=== PATIENT | female | born 1965 | race Caucasian/White ===

== ENCOUNTER 2020-05-21 05:58 | Inpatient (IN) | payer BC ==
[~2020-05-21] VITALS: Ht 162.6 cm; Wt 85.0 kg
[2020-05-21] VITALS (13 sets, daily range): BP systolic 111–138; BP diastolic 63–88
[~2020-05-21 05:58] MED LIST: CLON2TAB PO; FERR325T32 PO; PROP80CA PO; ZOLP10TA5 PO
[2020-05-21] MEDS ORDERED: ondansetron/PF 4mg/2ml inj IV ONE ×2 (06:55→11:25)
[2020-05-21] MEDS ORDERED: normal saline 1000ML IV soln IVB ONE (06:55)
[2020-05-21 06:56] LABS: BASOPHILS # (AUTO) 0.1 X10'3 (0-0.2); BASOPHILS % (AUTO) 1.3 % (0-1); EOSINOPHILS # (AUTO) 0.2 X10'3 (0-0.9); EOSINOPHILS % (AUTO) 3.6 % (0-6); HEMATOCRIT 32.2 % (35.0-45.0); HEMOGLOBIN 10.5 g/dl (12.0-16.0); LYMPHOCYTES # (AUTO) 0.7 X10'3 (1.1-4.8); LYMPHOCYTES % (AUTO) 13.7 % (21-51); MEAN CORPUSCULAR HEMOGLOBIN 29.5 PG (27.0-31.0); MEAN CORPUSCULAR HGB CONC 32.7 g/dL (33.0-36.5); MEAN CORPUSCULAR VOLUME 90.2 FL (78-98); MEAN PLATELET VOLUME 7.7 FL (7.4-10.4); MONOCYTES # (AUTO) 0.7 X10'3 (0-0.9); MONOCYTES % (AUTO) 12.3 % (2-12); NEUTROPHILS # (AUTO) 3.8 X10'3 (1.8-7.7); NEUTROPHILS % (AUTO) 69.1 % (42-75); PLATELET COUNT 165 X10'3 (140-440); RED BLOOD COUNT 3.58 X10'6 (4.20-5.60); RED CELL DISTRIBUTION WIDTH 19.8 % (11.5-14.5); WHITE BLOOD COUNT 5.4 X10'3 (4.5-11.0)
[2020-05-21 07:02] LABS: PARTIAL THROMBOPLASTIN TIME 28 SECONDS (22-32)
[2020-05-21 07:06] LABS: ALANINE AMINOTRANSFERASE 162 U/L (12-78); ALBUMIN 3.7 G/DL (3.4-5.0); ALBUMIN/GLOBULIN RATIO 0.8 (1.1-1.5); ALKALINE PHOSPHATASE 182 IU/L (46-116); ANION GAP 17 (8-16); ASPARTATE AMINO TRANSFERASE 334 U/L (10-37); BILIRUBIN,TOTAL 2.8 MG/DL (0.1-1.0); BLOOD UREA NITROGEN 30 MG/DL (7-18); BUN/CREATININE RATIO 44.1 (6.6-38.0); CALCIUM 8.2 MG/DL (8.5-10.1); CHLORIDE 106 MMOL/L (99-107); CREATININE 0.68 MG/DL (0.40-0.90); ETHANOL 0.218 GM/DL (0.0-0.010); GLUCOSE 101 MG/DL (70-104); LIPASE 95 U/L (73-393); SODIUM 144 MMOL/L (135-145); TOTAL CARBON DIOXIDE 21.2 MMOL/L (24-32); TOTAL PROTEIN 8.4 G/DL (6.4-8.2); eGFR 90 ML/MIN
[2020-05-21 07:07] LABS: POTASSIUM 3.8 MMOL/L (3.5-5.1)
[2020-05-21] MEDS ORDERED: pantoprazole 40 MG vial IV ONE (07:50)
[2020-05-21 08:45] LABS: CLARITY,URINE CLOUDY (Clear); COLOR,URINE YELLOW (Yellow); GLUCOSE, URINE NEGATIVE (Neg); KETONES,URINE >=80 mg/dl (Neg); LEUKOCYTE ESTERASE ,URINE NEGATIVE (Neg); NITRITES, URINE POSITIVE (Neg); OCCULT BLOOD,URINE SMALL (Neg); PROTEIN,URINE NEGATIVE (Neg)
[2020-05-21 08:46] LABS: UA COLLECTION TYPE CLN CATCH MIDSTREAM
[2020-05-21 08:51] LABS: BACTERIA,URINE 2+ /HPF (Neg); RBC,URINE 0-2 /HPF (0-2); SQUAMOUS EPITHELIAL CELL,UR FEW /LPF (FEW); WBC,URINE 0-4 /HPF (0-4)
[2020-05-21 08:52] LABS: WBC CLUMPS,URINE FEW /HPF (NEGATIVE)
[2020-05-21 09:45] LABS: ANISOCYTOSIS 2+
[2020-05-21 09:46] LABS: ELLIPTOCYTES FEW
[2020-05-21 09:47] LABS: PLATELET ESTIMATE NORMAL
[2020-05-21 09:49] LABS: HEMOGLOBIN 8.9 g/dl (12.0-16.0); MEAN CORPUSCULAR HEMOGLOBIN 29.6 PG (27.0-31.0); MEAN CORPUSCULAR HGB CONC 32.9 g/dL (33.0-36.5); MEAN CORPUSCULAR VOLUME 90.1 FL (78-98); MEAN PLATELET VOLUME 7.8 FL (7.4-10.4); PLATELET COUNT 98 X10'3 (140-440); RED BLOOD COUNT 2.99 X10'6 (4.20-5.60); WHITE BLOOD COUNT 3.5 X10'3 (4.5-11.0)
[2020-05-21] MEDS ORDERED: octreotide inj. 500 MCG in normal saline 100ml IV soln 97.5 ML IV SCH (10:10)
[2020-05-21] MEDS ORDERED: octreotide 100mcg/1 ml ampule IV ONE (10:10)
[2020-05-21] MEDS: pantoprazole 40MG/NS 100ML BAG 100 ML IV SCH ×3 (11:18→21:03)
[2020-05-21] MEDS ORDERED: CLON-373 PO (12:23)
[2020-05-21] MEDS ORDERED: HYDR50CA5 PO (12:23)
[2020-05-21] MEDS ORDERED: PROP10TA10 PO (12:23)
[2020-05-21] MEDS ORDERED: BACL10TA7 PO (12:23)
--- NOTE | 2020-05-21 13:03 | NUR ---
DR TARIQ AWARE PRBC NOT RUNNING, ANOTHER NURSE ATTEMPTING FOR THIRD IV
--- NOTE | 2020-05-21 13:41 | NUR ---
Note undone in ED - 05/21/20 at 1343 by [email or web address] REPORT CALLED TO [facility] ON ORTHO FLOOR. PT TO BE TRANSFERRED WITH TELE. Addendum: 05/21/20 at 1342 by [email or web address] Amendment undone in [facility] - 05/21/20 at 1343 by [email or web address] REPORT CALLED TO [facility] ON pcu. pT TO BE TRANSPORTED WITH TELE.
--- NOTE | 2020-05-21 13:43 | NUR ---
REPORT CALLED TO [facility] ON PCU. PT GETTING BLOOD, PROTONIX, AND SANOSTATIN GTT'S.
--- NOTE | 2020-05-21 13:45 | NUR ---
Received report from EMANUEL Hernández
--- NOTE | 2020-05-21 14:00 | NUR ---
pt arrived to [facility] via gurney with all belongings
[2020-05-21] MEDS ORDERED: LIDOcaine Viscous 15ml cup ONE (14:24)
[2020-05-21] MEDS ORDERED: MIDAZolam 5mg/5ml vial ONE (14:24)
[2020-05-21] MEDS ORDERED: fentaNYL/PF 50MCG/1 ML 2ML syringe ONE (14:24)
--- NOTE | 2020-05-21 14:40 | NUR ---
Pt transferred to GI lab for EGD. All belongings left in room 0138I
[2020-05-21] MEDS ORDERED: magnesium 2GM in 50ml NS 50 ML IV PRN (15:55)
[2020-05-21] MEDS ORDERED: normal saline 1000ml 1,000 ML IV SCH (15:55)
[2020-05-21] MEDS ORDERED: HYDROcodone/acetaminophen 5mg/325mg tablet PO PRN (15:55)
[2020-05-21] MEDS ORDERED: metoclopramide 5 mg/ml inj IV PRN (15:55)
[2020-05-21] MEDS ORDERED: potassium CL 10mEq/100ml bag 100 ML IV PRN ×2 (15:55)
[2020-05-21] MEDS ORDERED: potassium Cl 20 mEq SR tablet PO PRN ×2 (15:55)
[2020-05-21] MEDS ORDERED: haloperidol 5mg tablet PO PRN (15:55)
[2020-05-21] MEDS ORDERED: magnesium Cl slow-release 64mg tablet PO PRN (15:55)
[2020-05-21] MEDS ORDERED: LORazepam 2 mg/ml vial IV PRN (15:55)
[2020-05-21] MEDS ORDERED: acetaminophen 325mg tablet PO PRN (15:55)
[2020-05-21] MEDS ORDERED: ondansetron/PF 4mg/2ml inj IV PRN (15:55)
[2020-05-21] MEDS ORDERED: morphine 2 MG/ML inj. syringe IV PRN ×2 (15:55)
[2020-05-21] MEDS ORDERED: thiamine 100mg/ml 2ml inj. IV ONE (15:55)
[2020-05-21] MEDS ORDERED: bisacodyl 10mg suppository rectal RC PRN (15:55)
[2020-05-21] MEDS ORDERED: magnesium hydroxide 30ml (MOM) UD suspension PO PRN (15:55)
[2020-05-21] MEDS ORDERED: mag hydrox/Alum hydrox/simeth 30ml oral suspension PO PRN (15:55)
[2020-05-21] MEDS ORDERED: haloperidol lactate 5mg/ml inj IM PRN (15:55)
[2020-05-21] MEDS ORDERED: dextrose 50%-water 50ml dispensing syringe IV PRN (15:55)
[2020-05-21] MEDS ORDERED: diphenhydrAMINE 25mg capsule PO PRN (15:55)
[2020-05-21] MEDS ORDERED: HYDROcodone/acetaminophen 10/325mg tab PO PRN (15:55)
[2020-05-21] MEDS ORDERED: magnesium 4gm in 100ml NS 100 ML IV PRN (15:55)
[2020-05-21] MEDS ORDERED: thiamine inj. 100 MG in normal saline 100ml IV soln 99 ML IV ONE (16:10)
[2020-05-21 16:48] LABS: HEMOGLOBIN A1C 5.2 % (4.5-6.2)
[2020-05-21] MEDS: clonazePAM 1mg tablet PO PRN (17:43)
--- NOTE | 2020-05-21 18:40 | NUR ---
Problems reprioritized. Patient report given, questions answered & plan of care reviewed with EMANUEL Chamberlain.
[2020-05-21] MEDS: K and/or MAG REPLACEMENT MC SCH (20:00)
[2020-05-21] MEDS ORDERED: hydrOXYzine 25 MG tablet PO SCH (21:00)
[2020-05-21] MEDS: propranolol 10mg tablet PO SCH (21:03)
[2020-05-22] MEDS: pantoprazole 40MG/NS 100ML BAG 100 ML IV SCH ×2 (01:54→05:30)
[2020-05-22 02:00] VITALS: BP 113/68
[2020-05-22] MEDS: clonazePAM 1mg tablet PO PRN (05:30)
--- NOTE | 2020-05-22 06:34 | NUR ---
Patient in room PCU 3028. I have received report from EMANUEL Chamberlain and had the opportunity to ask questions and assume patient care.
[2020-05-22 07:00] VITALS: BP 109/68
[2020-05-22] MEDS: propranolol 10mg tablet PO SCH (07:52)
[2020-05-22 07:57] LABS: BASOPHILS % (AUTO) 0.8 % (0-1); EOSINOPHILS # (AUTO) 0.1 X10'3 (0-0.9); HEMOGLOBIN 9.6 g/dl (12.0-16.0); LYMPHOCYTES # (AUTO) 0.6 X10'3 (1.1-4.8); LYMPHOCYTES % (AUTO) 20.3 % (21-51); MEAN CORPUSCULAR HEMOGLOBIN 30.3 PG (27.0-31.0); MEAN CORPUSCULAR HGB CONC 33.2 g/dL (33.0-36.5); MEAN CORPUSCULAR VOLUME 91.2 FL (78-98); MEAN PLATELET VOLUME 7.6 FL (7.4-10.4); MONOCYTES # (AUTO) 0.4 X10'3 (0-0.9); MONOCYTES % (AUTO) 13.8 % (2-12); NEUTROPHILS # (AUTO) 1.8 X10'3 (1.8-7.7); NEUTROPHILS % (AUTO) 61.1 % (42-75); PLATELET COUNT 59 X10'3 (140-440); RED BLOOD COUNT 3.18 X10'6 (4.20-5.60); RED CELL DISTRIBUTION WIDTH 19.5 % (11.5-14.5); WHITE BLOOD COUNT 2.9 X10'3 (4.5-11.0)
[2020-05-22] MEDS ORDERED: multivitamins, therapeutics tablet PO SCH (08:00)
[2020-05-22] MEDS ORDERED: pantoprazole 40mg Tablet.DR PO SCH (08:00)
[2020-05-22] MEDS ORDERED: folic acid 1mg tablet PO SCH (08:00)
[2020-05-22] MEDS: K and/or MAG REPLACEMENT MC SCH (08:00)
[2020-05-22] MEDS ORDERED: thiamine 100mg tablet PO SCH (08:00)
[2020-05-22 08:21] LABS: ALANINE AMINOTRANSFERASE 114 U/L (12-78); ALBUMIN 3.2 G/DL (3.4-5.0); ALBUMIN/GLOBULIN RATIO 0.9 (1.1-1.5); ALKALINE PHOSPHATASE 138 IU/L (46-116); AMYLASE 49 U/L (25-115); ANION GAP 9 (8-16); ASPARTATE AMINO TRANSFERASE 184 U/L (10-37); BLOOD UREA NITROGEN 19 MG/DL (7-18); CALCIUM 7.5 MG/DL (8.5-10.1); CHLORIDE 107 MMOL/L (99-107); CHOL/HDL RATIO 2.2 (0.00-4.99); CHOLESTEROL 159 MG/DL (0-200); CREATININE 0.76 MG/DL (0.40-0.90); GLUCOSE 105 MG/DL (70-104); HDL CHOLESTEROL 73 MG/DL (35-60); LDL CHOLESTEROL 71 MG/DL (50-100); MAGNESIUM 1.3 MG/DL (1.5-2.4); PHOSPHORUS 2.3 MG/DL (2.3-4.5); POTASSIUM 3.5 MMOL/L (3.5-5.1); SODIUM 142 MMOL/L (135-145); TOTAL CARBON DIOXIDE 25.6 MMOL/L (24-32); TOTAL PROTEIN 6.9 G/DL (6.4-8.2); TRIGLYCERIDES 137 MG/DL (20-135); eGFR 79 ML/MIN
[2020-05-22 08:44] LABS: PLATELET ESTIMATE DECREASED; TOTAL CELLS COUNTED 100
[2020-05-22 08:45] LABS: ANISOCYTOSIS 2+; HYPOCHROMASIA 1+; POLYCHROMASIA 1+
[2020-05-22] MEDS ORDERED: CefTRIAXone/D5W-Rocephin 1gm 50 ML IV SCH (09:25)
[2020-05-22] MEDS ORDERED: CEFD300C3 PO (10:10)
[2020-05-22] MEDS ORDERED: FOLI0.4T2 PO (10:10)
[2020-05-22] MEDS ORDERED: MULT-25 PO (10:10)
[2020-05-22] MEDS ORDERED: PANT40TA54 PO (10:10)
[2020-05-22] MEDS ORDERED: THIA50TA10 PO (10:10)
--- NOTE | 2020-05-22 12:29 | NUR ---
Patient stable for discharge per MD orders. Instructions were given, all questions answered appropriately. All belongings collected and sent with patient. PIV's discontinued, cannula's intact. Tele discontinued, telesales agent notified. I got Propanolol from pharmacy and given to patient. New RX's e-script to [facility]. Informed pt to follow up with Dr Lane and PCP within 2 to 3 days. Informed pt the importance not to drink alcohol. Wheeled to lobby and accompanied by son who picked pt up in personal vehicle.
[2020-05-23] MEDS ORDERED: LORazepam 1 MG tablet PO PRN (15:55)
[2020-05-23] MEDS ORDERED: LORazepam 2 mg/ml vial IV PRN (15:55)
[2020-05-25] MEDS ORDERED: LORazepam 1 MG tablet PO PRN (15:55)
[2020-05-25] MEDS ORDERED: LORazepam 2 mg/ml vial IV PRN (15:55)
== END 2020-05-22 12:27 | disposition home or self-care (01) | DRG 378 ==
LOC: ER 05:59 → UNDOADMIN 11:46 → ED HOLD 11:46 → PCU 3S 14:35 → ED HOLD 15:53 → PCU 3S 15:53
PROVIDERS: ADMIT Family Medicine; ATTEND Family Medicine
PROC: 0DB68ZX Excision of Stomach, Via Natural or Artificial Opening Endoscopic, Diagnostic (ICD-10-PCS; principal; 2020-05-21)
PROC: 30233N1 Transfusion of Nonautologous Red Blood Cells into Peripheral Vein, Percutaneous Approach (ICD-10-PCS; 2020-05-21)
DX: K29.61 Other gastritis with bleeding (principal); D62 Acute posthemorrhagic anemia; N39.0 Urinary tract infection, site not specified; K76.6 Portal hypertension; E66.9 Obesity, unspecified; F10.20 Alcohol dependence, uncomplicated; I10 Essential (primary) hypertension; J45.909 Unspecified asthma, uncomplicated; K74.60 Unspecified cirrhosis of liver; K70.10 Alcoholic hepatitis without ascites; B19.20 Unspecified viral hepatitis C without hepatic coma; F41.9 Anxiety disorder, unspecified; R00.0 Tachycardia, unspecified; Z68.32 Body mass index [BMI] 32.0-32.9, adult
CPT/HCPCS: 36415; 36430; 43239; 76700; 80053; 80061; 80320; 81001; 82150; 83036; 83690; 83735; 84100; 85007; 85008; 85025; 85027; 85610; 85730; 86885; 86900; 86901; 86920; 87077; 87081; 87088; 87186; 96374; 97161; 97530; 99152; 99285; A4620; C9113; G0378; J2060; J2250; J2354; J2405; J3010; J3411; J7030; J7040; P9016; Q0177

== ENCOUNTER 2022-10-29 06:12 | Inpatient (IN) | payer BC ==
[~2022-10-29] VITALS: Ht 160 cm; Wt 86.3 kg
[~2022-10-29 06:12] MED LIST changes: +BACL10TA7 PO; +CLON-373 PO; -CLON2TAB PO; -FERR325T32 PO; +HYDR50CA5 PO; +MULT-25 PO; +PANT40TA54 PO; +PROP10TA10 PO; -PROP80CA PO; +THIA50TA10 PO; -ZOLP10TA5 PO
[2022-10-29] MEDS ORDERED: LORazepam 2 mg/ml vial IV ONE (07:00)
[2022-10-29] MEDS ORDERED: normal saline 1000ml 1,000 ML IV ONE (07:00)
--- NOTE | 2022-10-29 07:17 | NUR ---
Per patient, she is on menopause already so she is not menstruating anymore.
[2022-10-29 07:33] LABS: EOSINOPHILS % (AUTO) 0.6 % (0-6); HEMATOCRIT 31.3 % (35.0-45.0); HEMOGLOBIN 10.5 g/dl (12.0-16.0); LYMPHOCYTES # (AUTO) 0.5 X10'3 (1.1-4.8); LYMPHOCYTES % (AUTO) 13.6 % (21-51); MEAN CORPUSCULAR HEMOGLOBIN 32.1 PG (27.0-31.0); MEAN CORPUSCULAR HGB CONC 33.6 g/dL (33.0-36.5); MEAN CORPUSCULAR VOLUME 95.5 FL (78-98); MEAN PLATELET VOLUME 8.2 FL (7.4-10.4); MONOCYTES # (AUTO) 0.7 X10'3 (0-0.9); MONOCYTES % (AUTO) 17.2 % (2-12); NEUTROPHILS # (AUTO) 2.7 X10'3 (1.8-7.7); NEUTROPHILS % (AUTO) 67.6 % (42-75); PLATELET COUNT 77 X10'3 (140-440); RED BLOOD COUNT 3.28 X10'6 (4.20-5.60); RED CELL DISTRIBUTION WIDTH 15.5 % (11.5-14.5)
[2022-10-29 07:38] LABS: ALANINE AMINOTRANSFERASE 36 U/L (12-78); ALBUMIN 2.7 G/DL (3.4-5.0); ALKALINE PHOSPHATASE 169 IU/L (46-116); ANION GAP 18 (8-16); ASPARTATE AMINO TRANSFERASE 135 U/L (10-37); BILIRUBIN,TOTAL 4.7 MG/DL (0.1-1.0); CALCIUM 7.2 MG/DL (8.5-10.1); CHLORIDE 101 MMOL/L (99-107); CREATININE 0.76 MG/DL (0.40-0.90); GLUCOSE 86 MG/DL (70-104); LIPASE 76 U/L (73-393); MAGNESIUM 1.2 MG/DL (1.5-2.4); SODIUM 143 MMOL/L (135-145); TOTAL CARBON DIOXIDE 23.6 MMOL/L (24-32); eGFR 78 ML/MIN
[2022-10-29 07:44] LABS: ALBUMIN/GLOBULIN RATIO 0.7 (1.1-1.5); BLOOD UREA NITROGEN 0 MG/DL (7-18); TOTAL PROTEIN 6.5 G/DL (6.4-8.2)
[2022-10-29 07:46] LABS: POTASSIUM 2.1 MMOL/L (3.5-5.1)
[2022-10-29 07:52] LABS: PLATELET ESTIMATE NORMAL
--- NOTE | 2022-10-29 07:52 | NUR ---
Critical lab K 2.1, BUN 0, and Mg 1.[address] Day
[2022-10-29 07:54] LABS: HYPOCHROMASIA 1+; SCHISTOCYTES FEW
[2022-10-29] MEDS ORDERED: magnesium 4gm in 100ml NS 100 ML IV PRN ×2 (07:55→10:20)
[2022-10-29] MEDS ORDERED: potassium Cl 40MEQ/1/2NS 520ml 520 ML IV PRN ×2 (07:55→10:20)
[2022-10-29] MEDS ORDERED: potassium Cl 20 mEq SR tablet PO PRN ×3 (07:55→10:20)
[2022-10-29] MEDS ORDERED: magnesium 2GM in 50ml NS 50 ML IV PRN (07:55)
[2022-10-29 08:03] LABS: CLARITY,URINE CLOUDY (Clear); COLOR,URINE YELLOW (Yellow); GLUCOSE, URINE NEGATIVE (Neg); KETONES,URINE 15 mg/dl (Neg); LEUKOCYTE ESTERASE ,URINE MODERATE (Neg); NITRITES, URINE POSITIVE (Neg); OCCULT BLOOD,URINE NEGATIVE (Neg); PH,URINE 6.5 (4.8-8.0); PROTEIN,URINE NEGATIVE (Neg)
[2022-10-29 08:04] LABS: UA COLLECTION TYPE CLN CATCH MIDSTREAM
[2022-10-29 08:10] LABS: SQUAMOUS EPITHELIAL CELL,UR MANY /LPF (FEW)
[2022-10-29 08:12] LABS: TRANSITIONAL EPI CELLS,URINE FEW /HPF; WBC,URINE 30-50 /HPF (0-4)
[2022-10-29 08:13] LABS: BACTERIA,URINE 4+ /HPF (Neg); RBC,URINE NONE SEEN /HPF (0-2); URINE HCG NEGATIVE (NEG)
[2022-10-29] MEDS: potassium Cl 20 mEq SR tablet PO PRN ×3 (08:34→20:16)
[2022-10-29 08:38] LABS: PHOSPHORUS 2.4 MG/DL (2.3-4.5)
[2022-10-29] MEDS ORDERED: CefTRIAXone 2gm/D5W 50ml BAG 50 ML IV ONE (08:40)
[2022-10-29] MEDS: K and/or MAG REPLACEMENT MC SCH ×3 (08:42→20:00)
[2022-10-29] MEDS: magnesium Cl slow-release 64mg tablet PO PRN ×2 (08:59→20:15)
[2022-10-29] MEDS ORDERED: LIDOcaine 1% W/epiNEPHrine 1:100,000 20ml vial IJ ONE (09:30)
--- NOTE | 2022-10-29 10:07 | NUR ---
pt consented for paracentesis and supplies at bedside for
[2022-10-29] MEDS ORDERED: magnesium hydroxide 30ml (MOM) UD suspension PO PRN (10:20)
[2022-10-29] MEDS ORDERED: haloperidol lactate 5mg/ml inj IM PRN (10:20)
[2022-10-29] MEDS ORDERED: mag hydrox/Alum hydrox/simeth 30ml oral suspension PO PRN (10:20)
[2022-10-29] MEDS ORDERED: acetaminophen 325mg tablet PO PRN (10:20)
[2022-10-29] MEDS ORDERED: haloperidol 5mg tablet PO PRN (10:20)
[2022-10-29] MEDS ORDERED: ondansetron/PF 4mg/2ml inj IV PRN (10:20)
--- NOTE | 2022-10-29 10:26 | NUR ---
Paracentesis at bedside ongoing. Procedure peformed by Dr. Day
[2022-10-29] MEDS ORDERED: albumin (human) 25% 100 ML IV solution IV ONE (10:40)
--- NOTE | 2022-10-29 10:58 | NUR ---
Paracentesis completed. Dr. Day took out 5 liters of fluid from patient abdomen. Albumin IV infusing
[2022-10-29] MEDS: LORazepam 2 mg/ml vial IV PRN ×3 (11:10→23:32)
[2022-10-29] MEDS ORDERED: MULT-1085 PO (14:17)
[2022-10-29 15:00] VITALS: BP 96/60
[2022-10-29 18:00] VITALS: BP 117/71
[2022-10-29] MEDS: docusate sod 100mg capsule PO SCH (20:15)
[2022-10-29] MEDS: thiamine 100mg tablet PO SCH (20:16)
[2022-10-29 22:00] VITALS: BP 114/78
--- NOTE | 2022-10-29 23:36 | NUR ---
Page Sent PAGER ID: [phone] MESSAGE: [id number] Bailee Sneed: Critical K+ lvl of 2.7. Brit ext [phone]
--- NOTE | 2022-10-29 23:38 | NUR ---
Dr. Navarro adv to replace critical K+ of 2.74 per protocol
[2022-10-30] MEDS: potassium Cl 20 mEq SR tablet PO PRN ×3 (00:10→08:39)
[2022-10-30 02:00] VITALS: BP 119/75
[2022-10-30] MEDS: LORazepam 2 mg/ml vial IV PRN ×2 (05:28→13:09)
--- NOTE | 2022-10-30 06:00 | NUR ---
This nurse agrees with the TIP LENGTH CHECKER's physical assessment. Medications reviewed and monitored by this RN.
[2022-10-30 07:00] VITALS: BP 110/72
[2022-10-30 07:05] LABS: BASOPHILS % (AUTO) 0.8 % (0-1); EOSINOPHILS # (AUTO) 0.1 X10'3 (0-0.9); EOSINOPHILS % (AUTO) 3.9 % (0-6); HEMATOCRIT 29.9 % (35.0-45.0); HEMOGLOBIN 10.1 g/dl (12.0-16.0); LYMPHOCYTES # (AUTO) 0.4 X10'3 (1.1-4.8); LYMPHOCYTES % (AUTO) 16.9 % (21-51); MEAN CORPUSCULAR HEMOGLOBIN 32.6 PG (27.0-31.0); MEAN CORPUSCULAR HGB CONC 33.6 g/dL (33.0-36.5); MEAN PLATELET VOLUME 7.9 FL (7.4-10.4); MONOCYTES # (AUTO) 0.4 X10'3 (0-0.9); MONOCYTES % (AUTO) 14.7 % (2-12); NEUTROPHILS # (AUTO) 1.6 X10'3 (1.8-7.7); NEUTROPHILS % (AUTO) 63.7 % (42-75); RED BLOOD COUNT 3.08 X10'6 (4.20-5.60); RED CELL DISTRIBUTION WIDTH 15.7 % (11.5-14.5); WHITE BLOOD COUNT 2.5 X10'3 (4.5-11.0)
[2022-10-30 07:15] LABS: ALANINE AMINOTRANSFERASE 30 U/L (12-78); ALBUMIN 2.7 G/DL (3.4-5.0); ALKALINE PHOSPHATASE 145 IU/L (46-116); ANION GAP 15 (8-16); ASPARTATE AMINO TRANSFERASE 98 U/L (10-37); BILIRUBIN,TOTAL 5.2 MG/DL (0.1-1.0); BLOOD UREA NITROGEN 1 MG/DL (7-18); BUN/CREATININE RATIO 1.6 (10.0-20.0); CHLORIDE 103 MMOL/L (99-107); CREATININE 0.63 MG/DL (0.40-0.90); GLUCOSE 65 MG/DL (70-104); LIPASE 64 U/L (73-393); MAGNESIUM 1.2 MG/DL (1.5-2.4); POTASSIUM 3.1 MMOL/L (3.5-5.1); SODIUM 142 MMOL/L (135-145); eGFR > 90 ML/MIN
[2022-10-30 07:17] LABS: PLATELET COUNT 30 X10'3 (140-440)
--- NOTE | 2022-10-30 07:25 | NUR ---
Page sent to at approx 0732 - Pt 1714B, Yvrose Sneed, critical lab @ 719. Please advise. Laura Quintero @[phone].
[2022-10-30 07:48] LABS: ALBUMIN/GLOBULIN RATIO 0.8 (1.1-1.5); PHOSPHORUS 2.2 MG/DL (2.3-4.5)
[2022-10-30 07:52] LABS: TOTAL CELLS COUNTED 100
[2022-10-30 07:53] LABS: PLATELET ESTIMATE DECREASED
[2022-10-30] MEDS: K and/or MAG REPLACEMENT MC SCH ×3 (08:00→20:00)
[2022-10-30] MEDS: multivitamins, therapeutics tablet PO SCH ×2 (08:00→08:38)
[2022-10-30] MEDS ORDERED: potassium phosphate inj 15 MMOL in normal saline 250ml IV soln 250 ML IV ONE (08:25)
[2022-10-30] MEDS: thiamine 100mg tablet PO SCH ×2 (08:37→19:30)
[2022-10-30] MEDS: docusate sod 100mg capsule PO SCH ×2 (08:38→19:30)
[2022-10-30] MEDS: CefTRIAXone/D5W-Rocephin 1gm 50 ML IV SCH (08:54)
[2022-10-30 11:00] VITALS: BP 114/70
--- NOTE | 2022-10-30 11:06 | NUR ---
MD gave order to start IV Potassium/phos, d/c'd magnesium ER, and new order Tramadol. Orders updated and started.
[2022-10-30] MEDS: traMADol 50MG tablet PO PRN ×3 (11:33→23:22)
--- NOTE | 2022-10-30 14:35 | NUR ---
AGREE WITH BURRER MARKER AXLE AM ASSESSMENT EXCEPT WHERE ADDITIONS/CHANGES MADE.
--- NOTE | 2022-10-30 14:44 | NUR ---
Page sent to at approx [phone] - Pt 1565B, Yvrose Sneed, tele monitoring order has would you like this renewed until d/c? Laura C @5626.
[2022-10-30 15:00] VITALS: BP 123/79
[2022-10-30 18:00] VITALS: BP 128/83
[2022-10-31] MEDS: LORazepam 2 mg/ml vial IV PRN (01:26)
[2022-10-31 01:55] VITALS: BP 152/65
--- NOTE | 2022-10-31 02:32 | NUR ---
I AGREE WITH LORETA GOSS, PHYSICAL ASSESSMENTS ACCURATE. LIZY RANDALL RN
[2022-10-31 03:52] LABS: BASOPHILS % (AUTO) 0.8 % (0-1); EOSINOPHILS # (AUTO) 0.2 X10'3 (0-0.9); EOSINOPHILS % (AUTO) 5.3 % (0-6); HEMATOCRIT 29.3 % (35.0-45.0); HEMOGLOBIN 9.8 g/dl (12.0-16.0); LYMPHOCYTES # (AUTO) 0.4 X10'3 (1.1-4.8); LYMPHOCYTES % (AUTO) 10.8 % (21-51); MEAN CORPUSCULAR HEMOGLOBIN 32.5 PG (27.0-31.0); MEAN CORPUSCULAR HGB CONC 33.5 g/dL (33.0-36.5); MEAN CORPUSCULAR VOLUME 96.9 FL (78-98); MEAN PLATELET VOLUME 9.2 FL (7.4-10.4); MONOCYTES # (AUTO) 0.5 X10'3 (0-0.9); MONOCYTES % (AUTO) 14.1 % (2-12); NEUTROPHILS # (AUTO) 2.7 X10'3 (1.8-7.7); RED BLOOD COUNT 3.02 X10'6 (4.20-5.60); RED CELL DISTRIBUTION WIDTH 15.9 % (11.5-14.5); WHITE BLOOD COUNT 3.8 X10'3 (4.5-11.0)
[2022-10-31 03:59] LABS: PLATELET COUNT 33 X10'3 (140-440)
[2022-10-31 04:32] LABS: ALANINE AMINOTRANSFERASE 31 U/L (12-78); ALBUMIN 2.7 G/DL (3.4-5.0); ALKALINE PHOSPHATASE 142 IU/L (46-116); ANION GAP 11 (8-16); ASPARTATE AMINO TRANSFERASE 73 U/L (10-37); BILIRUBIN,TOTAL 5.5 MG/DL (0.1-1.0); BLOOD UREA NITROGEN 3 MG/DL (7-18); BUN/CREATININE RATIO 4.1 (10.0-20.0); CALCIUM 6.6 MG/DL (8.5-10.1); CHLORIDE 101 MMOL/L (99-107); CREATININE 0.74 MG/DL (0.40-0.90); GLUCOSE 86 MG/DL (70-104); LIPASE 57 U/L (73-393); MAGNESIUM 1.1 MG/DL (1.5-2.4); POTASSIUM 3.2 MMOL/L (3.5-5.1); SODIUM 138 MMOL/L (135-145); TOTAL CARBON DIOXIDE 26.4 MMOL/L (24-32); eGFR 81 ML/MIN
[2022-10-31 04:33] LABS: ALBUMIN/GLOBULIN RATIO 0.8 (1.1-1.5)
[2022-10-31 07:00] VITALS: BP 122/81
[2022-10-31] MEDS ORDERED: sodium phosphate inj. 30 MMOL in dextrose 5%-water 250 ML IV ONE (07:50)
[2022-10-31] MEDS: CefTRIAXone/D5W-Rocephin 1gm 50 ML IV SCH (07:52)
[2022-10-31] MEDS: K and/or MAG REPLACEMENT MC SCH ×2 (08:00)
[2022-10-31] MEDS: multivitamins, therapeutics tablet PO SCH ×2 (08:00→09:30)
[2022-10-31] MEDS: thiamine 100mg tablet PO SCH (09:30)
[2022-10-31] MEDS: docusate sod 100mg capsule PO SCH (09:30)
[2022-10-31] MEDS: traMADol 50MG tablet PO PRN (09:53)
[2022-10-31] MEDS ORDERED: LORazepam 2 mg/ml vial IV PRN (10:20)
[2022-10-31] MEDS ORDERED: LORazepam 1 MG tablet PO PRN (10:20)
--- NOTE | 2022-10-31 10:33 | NUR ---
Pt 3028B, what labs would you like drawn after IV infusions completed this am? Laura C @3624.
[2022-10-31 11:00] VITALS: BP 120/81
[2022-10-31] MEDS ORDERED: POTA-197 PO (11:03)
[2022-10-31] MEDS ORDERED: MAGN200T5 PO (11:03)
--- NOTE | 2022-10-31 13:43 | NUR ---
AGREE WITH DISTRIBUTED ENERGY SYSTEMS CONSULTANT AM ASSESSMENT.
--- NOTE | 2022-10-31 15:30 | NUR ---
Page sent to at approx [phone] -[id number] requesting work note, cannot return to work without dr mcdonnell for being off work. Also requesting anti anxiety pill to be called into pharmacy upon discharge. thanks, Laura Nino @1125.
[2022-10-31] MEDS ORDERED: CLON2TAB44 PO (16:29)
[2022-10-31 17:49] LABS: MAGNESIUM 1.8 MG/DL (1.5-2.4)
--- NOTE | 2022-10-31 18:00 | NUR ---
Page sent to at approx 1800 - Labs @ 7341 - K+ 3.0, mg 1.8, phos 4.0. Please advise re: janene Nino @[phone].
[2022-11-02] MEDS ORDERED: LORazepam 1 MG tablet PO PRN (10:20)
[2022-11-02] MEDS ORDERED: LORazepam 2 mg/ml vial IV PRN (10:20)
[2022-11-03] MEDS ORDERED: folic acid 1mg tablet PO SCH (08:00)
== END 2022-10-31 19:10 | disposition home or self-care (01) | DRG 433 ==
LOC: ER 06:13 → ED HOLD 10:24 → EDBEDREQ 12:21 → PCU 3S 13:05
PROVIDERS: ADMIT Family Medicine; ATTEND Family Medicine
PROC: 0W9G3ZZ Drainage of Peritoneal Cavity, Percutaneous Approach (ICD-10-PCS; principal; 2022-10-29)
DX: K70.31 Alcoholic cirrhosis of liver with ascites (principal); D61.818 Other pancytopenia; D68.9 Coagulation defect, unspecified; E83.42 Hypomagnesemia; E87.6 Hypokalemia; E83.39 Other disorders of phosphorus metabolism; F41.9 Anxiety disorder, unspecified; F10.10 Alcohol abuse, uncomplicated; G47.9 Sleep disorder, unspecified; B19.20 Unspecified viral hepatitis C without hepatic coma; J45.909 Unspecified asthma, uncomplicated; K70.40 Alcoholic hepatic failure without coma; Z80.1 Family history of malignant neoplasm of trachea, bronchus and lung; Z82.5 Family history of asthma and other chronic lower respiratory diseases; Z83.3 Family history of diabetes mellitus; Z87.11 Personal history of peptic ulcer disease; Z79.899 Other long term (current) drug therapy; Z71.41 Alcohol abuse counseling and surveillance of alcoholic
CPT/HCPCS: 36415; 80053; 81001; 81025; 82140; 83690; 83735; 84100; 84132; 85007; 85008; 85025; 85610; 87081; 96361; 96374; 97116; 97161; 97530; 99285; G0378; J0696; J2060; J2405; J3475; J3480; J3490; J7030; J7040; J7050; J7060; P9047

== ENCOUNTER 2022-12-04 22:31 | Emergency (ER) | payer BC ==
[~2022-12-04] VITALS: Ht 160 cm; Wt 81.8 kg
[~2022-12-04 22:31] MED LIST changes: -BACL10TA7 PO; -CLON-373 PO; +CLON2TAB44 PO; -HYDR50CA5 PO; +MAGN200T5 PO; +MULT-1085 PO; -MULT-25 PO; -PANT40TA54 PO; +POTA-197 PO; -PROP10TA10 PO; -THIA50TA10 PO
[2022-12-05 01:39] LABS: BASOPHILS % (AUTO) 0.3 % (0-1); EOSINOPHILS # (AUTO) 0.1 X10'3 (0-0.9); HEMATOCRIT 26.6 % (35.0-45.0); HEMOGLOBIN 8.5 g/dl (12.0-16.0); LYMPHOCYTES # (AUTO) 0.9 X10'3 (1.1-4.8); LYMPHOCYTES % (AUTO) 7.3 % (21-51); MEAN CORPUSCULAR HEMOGLOBIN 29.7 PG (27.0-31.0); MEAN CORPUSCULAR HGB CONC 31.9 g/dL (33.0-36.5); MEAN CORPUSCULAR VOLUME 93.1 FL (78-98); MONOCYTES # (AUTO) 1.6 X10'3 (0-0.9); MONOCYTES % (AUTO) 13.5 % (2-12); NEUTROPHILS # (AUTO) 9.2 X10'3 (1.8-7.7); NEUTROPHILS % (AUTO) 77.9 % (42-75); PLATELET COUNT 298 X10'3 (140-440); RED BLOOD COUNT 2.86 X10'6 (4.20-5.60); RED CELL DISTRIBUTION WIDTH 16.6 % (11.5-14.5); WHITE BLOOD COUNT 11.8 X10'3 (4.5-11.0)
[2022-12-05 01:41] LABS: ALANINE AMINOTRANSFERASE 19 U/L (12-78); ALBUMIN 2.4 G/DL (3.4-5.0); ALBUMIN/GLOBULIN RATIO 0.6 (1.1-1.5); ALKALINE PHOSPHATASE 193 IU/L (46-116); ANION GAP 12 (8-16); ASPARTATE AMINO TRANSFERASE 39 U/L (10-37); BILIRUBIN,TOTAL 2.7 MG/DL (0.1-1.0); BLOOD UREA NITROGEN 20 MG/DL (7-18); BUN/CREATININE RATIO 16.3 (10.0-20.0); CALCIUM 8.2 MG/DL (8.5-10.1); CHLORIDE 98 MMOL/L (99-107); CREATININE 1.23 MG/DL (0.40-0.90); GLUCOSE 94 MG/DL (70-104); POTASSIUM 4.4 MMOL/L (3.5-5.1); SODIUM 132 MMOL/L (135-145); TOTAL CARBON DIOXIDE 22.4 MMOL/L (24-32); TOTAL PROTEIN 6.3 G/DL (6.4-8.2); eGFR 45 ML/MIN
[2022-12-05] MEDS ORDERED: LORazepam 2 mg/ml vial IV ONE (01:45)
[2022-12-05] MEDS ORDERED: albumin (human) 25% 100 ML IV solution IV ONE ×2 (02:55→04:35)
[2022-12-05 04:38] LABS: BFAPPEAR CLEAR
[2022-12-05 04:43] LABS: BFCOLOR YELLOW
[2022-12-05 04:44] LABS: BFVOLUME 20 ML
[2022-12-05 04:46] LABS: BF RBC COUNT 23 /CU MM; BF WBC COUNT 44 /CU MM (0-1000); LYMPHOCYTES,BODY FLUID 76 %; MONOCYTES,BODY FLUID 17 %; NEUTROPHILS,BODY FLUID 7 %
--- NOTE | 2022-12-05 05:00 | NUR ---
AWARE OF BP. NEW ORDERS FOR ALBUMIN RECIEVED.
[2022-12-05 06:38] VITALS: BP 97/56
== END 2022-12-05 07:10 | disposition home or self-care (01) ==
LOC: ER 22:31
DX: K70.30 Alcoholic cirrhosis of liver without ascites (principal); R18.8 Other ascites; J45.909 Unspecified asthma, uncomplicated; Z79.899 Other long term (current) drug therapy
CPT/HCPCS: 36415; 49083; 80053; 85025; 85610; 89051; 96374; 96375; 96376; 99285; J2060; P9047

== ENCOUNTER 2022-12-09 11:50 | Inpatient (IN) | payer BC ==
[~2022-12-09] VITALS: Ht 160 cm; Wt 73.2 kg
[2022-12-09] MEDS ORDERED: pantoprazole 40mg Tablet.DR PO ONE (15:30)
[2022-12-09 15:55] LABS: BASOPHILS # (AUTO) 0.1 X10'3 (0-0.2); BASOPHILS % (AUTO) 0.7 % (0-1); EOSINOPHILS # (AUTO) 0.1 X10'3 (0-0.9); EOSINOPHILS % (AUTO) 1.2 % (0-6); LYMPHOCYTES # (AUTO) 1.1 X10'3 (1.1-4.8); LYMPHOCYTES % (AUTO) 8.3 % (21-51); MEAN CORPUSCULAR HEMOGLOBIN 29.3 PG (27.0-31.0); MEAN CORPUSCULAR HGB CONC 31.6 g/dL (33.0-36.5); MEAN CORPUSCULAR VOLUME 92.6 FL (78-98); MEAN PLATELET VOLUME 8.3 FL (7.4-10.4); MONOCYTES # (AUTO) 1.6 X10'3 (0-0.9); MONOCYTES % (AUTO) 12.7 % (2-12); NEUTROPHILS # (AUTO) 9.7 X10'3 (1.8-7.7); NEUTROPHILS % (AUTO) 77.1 % (42-75); PLATELET COUNT 281 X10'3 (140-440); RED BLOOD COUNT 2.38 X10'6 (4.20-5.60); RED CELL DISTRIBUTION WIDTH 16.7 % (11.5-14.5); WHITE BLOOD COUNT 12.6 X10'3 (4.5-11.0)
[2022-12-09 16:11] LABS: ALANINE AMINOTRANSFERASE 17 U/L (12-78); ALBUMIN/GLOBULIN RATIO 0.9 (1.1-1.5); ALKALINE PHOSPHATASE 159 IU/L (46-116); ANION GAP 10 (8-16); ASPARTATE AMINO TRANSFERASE 37 U/L (10-37); BILIRUBIN,TOTAL 2.7 MG/DL (0.1-1.0); BLOOD UREA NITROGEN 20 MG/DL (7-18); CALCIUM 8.5 MG/DL (8.5-10.1); CHLORIDE 101 MMOL/L (99-107); CREATININE 1.11 MG/DL (0.40-0.90); GLUCOSE 95 MG/DL (70-104); POTASSIUM 3.9 MMOL/L (3.5-5.1); SODIUM 132 MMOL/L (135-145); TOTAL CARBON DIOXIDE 21.2 MMOL/L (24-32); TOTAL PROTEIN 6.3 G/DL (6.4-8.2); eGFR 51 ML/MIN
[2022-12-09 16:15] LABS: LIPASE 53 U/L (73-393)
[2022-12-09 17:34] LABS: APTT 27 SECONDS (22-32)
[2022-12-09 18:45] LABS: CLARITY,URINE SLIGHTLY CLOUDY (Clear); GLUCOSE, URINE NEGATIVE (Neg); KETONES,URINE 15 mg/dl (Neg); LEUKOCYTE ESTERASE ,URINE LARGE (Neg); NITRITES, URINE NEGATIVE (Neg); OCCULT BLOOD,URINE NEGATIVE (Neg); PH,URINE 5.5 (4.8-8.0); PROTEIN,URINE TRACE mg/dl (Neg)
[2022-12-09 18:56] LABS: COLOR,URINE DARK YELLOW (Yellow); UA COLLECTION TYPE VOIDED
[2022-12-09 18:59] LABS: AMORPHOUS URATES 1+; BACTERIA,URINE 2+ /HPF (Neg); COARSE GRANULAR CAST 0-3 /LPF (NEGATIVE); MUCUS STRANDS FEW /LPF (Neg); SQUAMOUS EPITHELIAL CELL,UR MODERATE /LPF (FEW); TRANSITIONAL EPI CELLS,URINE FEW /HPF
[2022-12-09 19:02] LABS: OCCULT BLOOD STOOL POSITIVE (Neg)
[2022-12-09 19:23] VITALS: BP 100/57
[2022-12-09] MEDS ORDERED: LORazepam 0.5 MG tablet PO ONE (19:50)
--- NOTE | 2022-12-09 21:37 | NUR ---
blood transfusion documented on dowtime form per blood bank- finished at this time.
[2022-12-09] MEDS ORDERED: acetaminophen 325mg tablet PO PRN ×2 (22:20)
[2022-12-09] MEDS ORDERED: morphine 2 MG/ML inj. syringe IV PRN (22:20)
[2022-12-09] MEDS ORDERED: diphenhydrAMINE 25mg capsule PO PRN (22:20)
[2022-12-09] MEDS ORDERED: magnesium hydroxide 30ml (MOM) UD suspension PO PRN (22:20)
[2022-12-09] MEDS ORDERED: bisacodyl 10mg suppository rectal RC PRN (22:20)
[2022-12-09] MEDS ORDERED: acetaminophen 650mg rectal suppository RC PRN (22:20)
[2022-12-09] MEDS ORDERED: ondansetron 4mg rapidly disintigrating tab PO PRN (22:20)
[2022-12-09] MEDS ORDERED: ondansetron/PF 4mg/2ml inj IV PRN (22:20)
[2022-12-09] MEDS ORDERED: mag hydrox/Alum hydrox/simeth 30ml oral suspension PO PRN (22:20)
[2022-12-09] MEDS ORDERED: diphenhydrAMINE 50 mg/ml inj IV PRN (22:20)
[2022-12-09] MEDS ORDERED: albumin (Human) 5% 250ml 500 ML IV ONE (22:35)
[2022-12-09 23:06] LABS: OSMOLALITY 283 MOSM/K (280-300)
[2022-12-09 23:21] LABS: CREATINE KINASE 31 U/L (26-192); MAGNESIUM 1.4 MG/DL (1.5-2.4); PHOSPHORUS 4.6 MG/DL (2.3-4.5)
[2022-12-09] MEDS: normal saline 1000ml 1,000 ML IV SCH (23:26)
[2022-12-09 23:30] LABS: HEMOGLOBIN A1C < 3.8 % (4.5-6.2)
[2022-12-10] VITALS (7 sets, daily range): BP systolic 78–98; BP diastolic 49–53
--- NOTE | 2022-12-10 01:13 | NUR ---
Patient in room ED 6. I have received report from EMANUEL Victoria and had the opportunity to ask questions and assume patient care.
[2022-12-10] MEDS: temazepam 15mg capsule PO PRN (01:39)
[2022-12-10] MEDS: magnesium Cl slow-release 64mg tablet PO PRN ×2 (02:08→17:46)
--- NOTE | 2022-12-10 06:19 | NUR ---
Problems reprioritized. Patient report given, questions answered & plan of care reviewed with EMANUEL RUBIO.
--- NOTE | 2022-12-10 06:30 | NUR ---
Patient in room ORTHO 4012. I have received report from PEDRO CASTELLANOS and had the opportunity to ask questions and assume patient care.
--- NOTE | 2022-12-10 06:46 | NUR ---
Patient in room ORTHO 4012. I have received report from Mary CASTELLANOS and had the opportunity to ask questions and assume patient care.
[2022-12-10 06:56] LABS: BASOPHILS # (AUTO) 0.1 X10'3 (0-0.2); BASOPHILS % (AUTO) 0.7 % (0-1); EOSINOPHILS # (AUTO) 0.1 X10'3 (0-0.9); EOSINOPHILS % (AUTO) 1.8 % (0-6); LYMPHOCYTES # (AUTO) 0.6 X10'3 (1.1-4.8); LYMPHOCYTES % (AUTO) 9.1 % (21-51); MEAN CORPUSCULAR HEMOGLOBIN 31.1 PG (27.0-31.0); MEAN CORPUSCULAR HGB CONC 33.6 g/dL (33.0-36.5); MEAN CORPUSCULAR VOLUME 92.5 FL (78-98); MEAN PLATELET VOLUME 8.2 FL (7.4-10.4); MONOCYTES # (AUTO) 0.8 X10'3 (0-0.9); MONOCYTES % (AUTO) 12.1 % (2-12); NEUTROPHILS # (AUTO) 5.3 X10'3 (1.8-7.7); NEUTROPHILS % (AUTO) 76.3 % (42-75); PLATELET COUNT 147 X10'3 (140-440); RED BLOOD COUNT 2.12 X10'6 (4.20-5.60); WHITE BLOOD COUNT 6.9 X10'3 (4.5-11.0)
[2022-12-10 07:12] LABS: HEMOGLOBIN 6.6 g/dl (12.0-16.0)
[2022-12-10 07:13] LABS: HEMATOCRIT 19.6 % (35.0-45.0)
[2022-12-10 07:28] LABS: ALANINE AMINOTRANSFERASE 11 U/L (12-78); ALBUMIN 2.5 G/DL (3.4-5.0); ALBUMIN/GLOBULIN RATIO 0.9 (1.1-1.5); ALKALINE PHOSPHATASE 136 IU/L (46-116); ANION GAP 10 (8-16); ASPARTATE AMINO TRANSFERASE 32 U/L (10-37); BLOOD UREA NITROGEN 20 MG/DL (7-18); BUN/CREATININE RATIO 20.8 (10.0-20.0); CALCIUM 7.7 MG/DL (8.5-10.1); CHLORIDE 103 MMOL/L (99-107); CHOL/HDL RATIO 5.6 (0.00-4.99); CHOLESTEROL 73 MG/DL (0-200); CREATININE 0.96 MG/DL (0.40-0.90); GLUCOSE 101 MG/DL (70-104); HDL CHOLESTEROL 13 MG/DL (35-60); LDL CHOLESTEROL 47 MG/DL (50-100); POTASSIUM 3.7 MMOL/L (3.5-5.1); SODIUM 135 MMOL/L (135-145); TOTAL CARBON DIOXIDE 21.7 MMOL/L (24-32); TOTAL PROTEIN 5.4 G/DL (6.4-8.2); TRIGLYCERIDES 99 MG/DL (20-135); eGFR 60 ML/MIN
[2022-12-10] MEDS ORDERED: pantoprazole 40mg Tablet.DR PO SCH (07:30)
--- NOTE | 2022-12-10 07:46 | NUR ---
PAGER ID: [phone] MESSAGE: BECKIE CASTELLANOSACCOUNTANT BOOKKEEPER (RE) [id number] LOATS HGB 6.9, HCT 19.6 JUST NOTIFYING OF CRITICAL RESULTS
[2022-12-10] MEDS: docusate sod 100mg capsule PO SCH ×2 (07:54→20:23)
[2022-12-10] MEDS: furosemide 20 MG/2 ML vial IV SCH ×3 (07:54→20:00)
[2022-12-10] MEDS: CefTRIAXone/D5W-Rocephin 1gm 50 ML IV SCH (07:55)
[2022-12-10] MEDS: normal saline 1000ml 1,000 ML IV SCH ×2 (08:20→12:45)
[2022-12-10] MEDS: HYDROcodone/acetaminophen 5mg/325mg tablet PO PRN ×3 (09:18→20:39)
[2022-12-10] MEDS ORDERED: octreotide inj. 1,250 MCG in normal saline 250ml IV soln 243.75 ML IV SCH (10:55)
[2022-12-10 11:47] LABS: HEMATOCRIT 23.7 % (35.0-45.0); HEMOGLOBIN 7.7 g/dl (12.0-16.0); MEAN CORPUSCULAR HEMOGLOBIN 30.7 PG (27.0-31.0); MEAN CORPUSCULAR HGB CONC 32.7 g/dL (33.0-36.5); MEAN CORPUSCULAR VOLUME 93.8 FL (78-98); MEAN PLATELET VOLUME 8.5 FL (7.4-10.4); PLATELET COUNT 178 X10'3 (140-440); RED BLOOD COUNT 2.52 X10'6 (4.20-5.60); RED CELL DISTRIBUTION WIDTH 16.1 % (11.5-14.5); WHITE BLOOD COUNT 8.9 X10'3 (4.5-11.0)
[2022-12-10] MEDS: pantoprazole 40MG/NS 100ML BAG 100 ML IV SCH ×3 (12:47→20:27)
[2022-12-10 16:16] LABS: MAGNESIUM 1.4 MG/DL (1.5-2.4)
--- NOTE | 2022-12-10 18:24 | NUR ---
Patient in room ORTHO 4012. I have received report from Dannie, RN and Nicola, Student RN and had the opportunity to ask questions and assume patient care.
--- NOTE | 2022-12-10 18:24 | NUR ---
Problems reprioritized. Patient report given to Stefania CASTELLANOS, questions answered & plan of care reviewed with .
[2022-12-10] MEDS: magnesium oxide 400mg tablet PO SCH (20:26)
[2022-12-10 21:56] LABS: MEAN CORPUSCULAR HEMOGLOBIN 30.6 PG (27.0-31.0); MEAN CORPUSCULAR HGB CONC 32.8 g/dL (33.0-36.5); MEAN CORPUSCULAR VOLUME 93.4 FL (78-98); MEAN PLATELET VOLUME 8.4 FL (7.4-10.4); PLATELET COUNT 140 X10'3 (140-440); RED BLOOD COUNT 2.03 X10'6 (4.20-5.60); RED CELL DISTRIBUTION WIDTH 16.3 % (11.5-14.5); WHITE BLOOD COUNT 6.5 X10'3 (4.5-11.0)
[2022-12-10 22:17] LABS: HEMOGLOBIN 6.2 g/dl (12.0-16.0)
[2022-12-10] MEDS: clonazePAM 1mg tablet PO PRN (23:03)
[2022-12-11] VITALS (8 sets, daily range): BP systolic 77–100; BP diastolic 48–65
[2022-12-11] MEDS: pantoprazole 40MG/NS 100ML BAG 100 ML IV SCH ×3 (00:37→11:06)
[2022-12-11] MEDS: temazepam 15mg capsule PO PRN ×2 (01:45→21:38)
[2022-12-11] MEDS: normal saline 1000ml 1,000 ML IV SCH ×2 (04:08→11:06)
--- NOTE | 2022-12-11 06:09 | NUR ---
Problems reprioritized. Patient report given, questions answered & plan of care reviewed with EMANUEL Pandey.
--- NOTE | 2022-12-11 06:37 | NUR ---
Patient in room ORTHO 4023. I have received report from Georgiana CASTELLANOS and had the opportunity to ask questions and assume patient care.
[2022-12-11 07:07] LABS: ALANINE AMINOTRANSFERASE 12 U/L (12-78); ALBUMIN 2.4 G/DL (3.4-5.0); ALBUMIN/GLOBULIN RATIO 0.9 (1.1-1.5); ALKALINE PHOSPHATASE 126 IU/L (46-116); ANION GAP 7 (8-16); ASPARTATE AMINO TRANSFERASE 35 U/L (10-37); BLOOD UREA NITROGEN 17 MG/DL (7-18); BUN/CREATININE RATIO 17.5 (10.0-20.0); CHLORIDE 107 MMOL/L (99-107); CREATININE 0.97 MG/DL (0.40-0.90); GLUCOSE 125 MG/DL (70-104); POTASSIUM 3.7 MMOL/L (3.5-5.1); SODIUM 135 MMOL/L (135-145); TOTAL PROTEIN 5.1 G/DL (6.4-8.2); eGFR 59 ML/MIN
[2022-12-11 07:16] LABS: BASOPHILS # (AUTO) 0.1 X10'3 (0-0.2); BASOPHILS % (AUTO) 0.8 % (0-1); EOSINOPHILS # (AUTO) 0.2 X10'3 (0-0.9); EOSINOPHILS % (AUTO) 3.3 % (0-6); HEMATOCRIT 24.2 % (35.0-45.0); HEMOGLOBIN 7.9 g/dl (12.0-16.0); LYMPHOCYTES # (AUTO) 0.7 X10'3 (1.1-4.8); LYMPHOCYTES % (AUTO) 9.6 % (21-51); MEAN CORPUSCULAR HEMOGLOBIN 30.4 PG (27.0-31.0); MEAN CORPUSCULAR HGB CONC 32.7 g/dL (33.0-36.5); MEAN CORPUSCULAR VOLUME 93.1 FL (78-98); MEAN PLATELET VOLUME 8.5 FL (7.4-10.4); MONOCYTES % (AUTO) 14.4 % (2-12); NEUTROPHILS # (AUTO) 5.1 X10'3 (1.8-7.7); NEUTROPHILS % (AUTO) 71.9 % (42-75); PLATELET COUNT 154 X10'3 (140-440); RED CELL DISTRIBUTION WIDTH 15.4 % (11.5-14.5)
[2022-12-11] MEDS: furosemide 20 MG/2 ML vial IV SCH ×2 (08:00→19:59)
[2022-12-11] MEDS: docusate sod 100mg capsule PO SCH ×2 (08:18→19:51)
[2022-12-11] MEDS: multivitamins, therapeutics tablet PO SCH (08:18)
[2022-12-11] MEDS: potassium Cl 20 mEq SR tablet PO SCH (08:19)
[2022-12-11] MEDS: magnesium oxide 400mg tablet PO SCH ×2 (08:19→19:51)
[2022-12-11] MEDS: CefTRIAXone/D5W-Rocephin 1gm 50 ML IV SCH (08:25)
[2022-12-11 09:19] LABS: HEMATOCRIT 25.5 % (35.0-45.0); HEMOGLOBIN 8.3 g/dl (12.0-16.0); MEAN CORPUSCULAR HGB CONC 32.4 g/dL (33.0-36.5); MEAN CORPUSCULAR VOLUME 95.6 FL (78-98); MEAN PLATELET VOLUME 8.6 FL (7.4-10.4); PLATELET COUNT 172 X10'3 (140-440); RED BLOOD COUNT 2.67 X10'6 (4.20-5.60); RED CELL DISTRIBUTION WIDTH 15.9 % (11.5-14.5); WHITE BLOOD COUNT 8.2 X10'3 (4.5-11.0)
[2022-12-11] MEDS: HYDROcodone/acetaminophen 5mg/325mg tablet PO PRN ×2 (11:34→19:01)
--- NOTE | 2022-12-11 14:21 | NUR ---
RN TC: Pt requests ONS w/ meals MD requests RD input. Pt admit DX etoh cirrhosis PO ~50% first 3 Na-restricted meals though ~25% todays meals at best per RN. DEJA recommends Ensure Enlive TIDWM to assist meeting needs. Will monitor for PO trends and change to ONS needs this admit. Rec: 1. continue Na-restricted diet per MD; liberalize to regular if poor PO persists 2. Ensure Enlive TIDWM; monitor further PO trends for needed frequency/ONS changes Addendum: 12/11/22 at [address] Amended: Links added.
[2022-12-11] MEDS: lactose-reduced food (Ensure Enlive) - 237ml bottle PO SCH (18:00)
--- NOTE | 2022-12-11 18:22 | NUR ---
Problems reprioritized. Patient report given, questions answered & plan of care reviewed with Kim CASTELLANOS.
[2022-12-11] MEDS: pantoprazole 40mg Tablet.DR PO SCH (19:50)
[2022-12-11 22:01] LABS: HEMATOCRIT 23.7 % (35.0-45.0); HEMOGLOBIN 7.9 g/dl (12.0-16.0); MEAN CORPUSCULAR HGB CONC 33.3 g/dL (33.0-36.5); MEAN CORPUSCULAR VOLUME 93.1 FL (78-98); MEAN PLATELET VOLUME 8.9 FL (7.4-10.4); PLATELET COUNT 177 X10'3 (140-440); RED BLOOD COUNT 2.54 X10'6 (4.20-5.60); WHITE BLOOD COUNT 8.7 X10'3 (4.5-11.0)
[2022-12-12] VITALS (7 sets, daily range): BP systolic 89–122; BP diastolic 52–69
[2022-12-12] MEDS: HYDROcodone/acetaminophen 5mg/325mg tablet PO PRN ×2 (01:09→12:43)
[2022-12-12] MEDS: clonazePAM 1mg tablet PO PRN (01:55)
[2022-12-12 05:36] LABS: BASOPHILS # (AUTO) 0.1 X10'3 (0-0.2); BASOPHILS % (AUTO) 0.7 % (0-1); EOSINOPHILS # (AUTO) 0.2 X10'3 (0-0.9); EOSINOPHILS % (AUTO) 2.1 % (0-6); HEMATOCRIT 24.2 % (35.0-45.0); HEMOGLOBIN 7.9 g/dl (12.0-16.0); LYMPHOCYTES # (AUTO) 0.6 X10'3 (1.1-4.8); LYMPHOCYTES % (AUTO) 7.2 % (21-51); MEAN CORPUSCULAR HEMOGLOBIN 30.7 PG (27.0-31.0); MEAN CORPUSCULAR HGB CONC 32.7 g/dL (33.0-36.5); MEAN CORPUSCULAR VOLUME 93.6 FL (78-98); MEAN PLATELET VOLUME 8.7 FL (7.4-10.4); MONOCYTES # (AUTO) 1.1 X10'3 (0-0.9); MONOCYTES % (AUTO) 13.3 % (2-12); NEUTROPHILS # (AUTO) 6.5 X10'3 (1.8-7.7); NEUTROPHILS % (AUTO) 76.7 % (42-75); PLATELET COUNT 181 X10'3 (140-440); RED BLOOD COUNT 2.59 X10'6 (4.20-5.60); RED CELL DISTRIBUTION WIDTH 15.8 % (11.5-14.5); WHITE BLOOD COUNT 8.5 X10'3 (4.5-11.0)
[2022-12-12 05:48] LABS: ALANINE AMINOTRANSFERASE 12 U/L (12-78); ALBUMIN 2.4 G/DL (3.4-5.0); ALBUMIN/GLOBULIN RATIO 0.9 (1.1-1.5); ALKALINE PHOSPHATASE 118 IU/L (46-116); ANION GAP 11 (8-16); ASPARTATE AMINO TRANSFERASE 40 U/L (10-37); BILIRUBIN,TOTAL 2.2 MG/DL (0.1-1.0); BLOOD UREA NITROGEN 16 MG/DL (7-18); BUN/CREATININE RATIO 17.4 (10.0-20.0); CALCIUM 7.1 MG/DL (8.5-10.1); CHLORIDE 107 MMOL/L (99-107); CREATININE 0.92 MG/DL (0.40-0.90); GLUCOSE 111 MG/DL (70-104); POTASSIUM 3.5 MMOL/L (3.5-5.1); SODIUM 136 MMOL/L (135-145); TOTAL CARBON DIOXIDE 18.5 MMOL/L (24-32); TOTAL PROTEIN 5.2 G/DL (6.4-8.2); eGFR 63 ML/MIN
--- NOTE | 2022-12-12 06:18 | NUR ---
Problems reprioritized. Patient report given, questions answered & plan of care reviewed with EMANUEL RUIZ.
[2022-12-12] MEDS: docusate sod 100mg capsule PO SCH (08:19)
[2022-12-12] MEDS: furosemide 20 MG/2 ML vial IV SCH (08:19)
[2022-12-12] MEDS: pantoprazole 40mg Tablet.DR PO SCH (08:20)
[2022-12-12] MEDS: magnesium oxide 400mg tablet PO SCH (08:20)
[2022-12-12] MEDS: potassium Cl 20 mEq SR tablet PO SCH (08:20)
[2022-12-12] MEDS: lactose-reduced food (Ensure Enlive) - 237ml bottle PO SCH ×2 (08:20→13:00)
[2022-12-12] MEDS: multivitamins, therapeutics tablet PO SCH (08:20)
[2022-12-12] MEDS: spironolactone 25 MG tablet PO SCH ×2 (08:35→12:48)
[2022-12-12] MEDS ORDERED: FURO40TA4 PO (09:58)
[2022-12-12] MEDS ORDERED: SPIR25TA PO (09:58)
[2022-12-12] MEDS ORDERED: PANT40TA54 PO (09:58)
[2022-12-12] MEDS ORDERED: albumin (human) 25% 100 ML IV solution IV ONE (11:35)
[2022-12-12] MEDS ORDERED: HYDR-3965 PO (14:00)
[2022-12-12] MEDS ORDERED: ZOLP5TAB2 PO (14:00)
== END 2022-12-12 14:17 | disposition home or self-care (01) | DRG 433 ==
LOC: ER 11:50 → ED HOLD 22:24 → ORTHO 4S 12-10 01:26
PROVIDERS: ADMIT Family Medicine; ATTEND Internal Medicine
PROC: 30233N1 Transfusion of Nonautologous Red Blood Cells into Peripheral Vein, Percutaneous Approach (ICD-10-PCS; principal; 2022-12-09)
DX: K70.31 Alcoholic cirrhosis of liver with ascites (principal); D68.9 Coagulation defect, unspecified; E87.1 Hypo-osmolality and hyponatremia; K76.6 Portal hypertension; K92.2 Gastrointestinal hemorrhage, unspecified; N39.0 Urinary tract infection, site not specified; E78.5 Hyperlipidemia, unspecified; D50.0 Iron deficiency anemia secondary to blood loss (chronic); E10.22 Type 1 diabetes mellitus with diabetic chronic kidney disease; E10.51 Type 1 diabetes mellitus with diabetic peripheral angiopathy without gangrene; E78.00 Pure hypercholesterolemia, unspecified; E86.1 Hypovolemia; E88.09 Other disorders of plasma-protein metabolism, not elsewhere classified; I25.10 Atherosclerotic heart disease of native coronary artery without angina pectoris; I25.2 Old myocardial infarction; I50.9 Heart failure, unspecified; J44.9 Chronic obstructive pulmonary disease, unspecified; N18.9 Chronic kidney disease, unspecified; Z79.4 Long term (current) use of insulin; Z86.73 Personal history of transient ischemic attack (TIA), and cerebral infarction without residual deficits; Z86.74 Personal history of sudden cardiac arrest; Z80.1 Family history of malignant neoplasm of trachea, bronchus and lung; Z87.11 Personal history of peptic ulcer disease; Z87.442 Personal history of urinary calculi; Z95.1 Presence of aortocoronary bypass graft
CPT/HCPCS: 36415; 36430; 49083; 71045; 73600; 73620; 76705; 80053; 80061; 81001; 82272; 82550; 83036; 83605; 83690; 83735; 83880; 83930; 84100; 84443; 84484; 85025; 85027; 85610; 85730; 86885; 86900; 86901; 86920; 87040; 87081; 87088; 97116; 97161; 97530; 99285; C9113; G0378; J0696; J1940; J2354; J7030; J7040; J7050; P9016; P9045; P9047

== ENCOUNTER 2023-01-08 08:48 | Emergency (ER) | payer BC ==
[~2023-01-08] VITALS: Ht 160 cm; Wt 81.8 kg
[~2023-01-08 08:48] MED LIST changes: +FURO40TA4 PO; +HYDR-3965 PO; +PANT40TA54 PO; +SPIR25TA PO; +ZOLP5TAB2 PO
[2023-01-08] MEDS ORDERED: LIDOcaine 1% W/epiNEPHrine 1:100,000 20ml vial SQ ONE (10:39)
[2023-01-08] MEDS ORDERED: LORazepam 0.5 MG tablet PO ONE ×2 (11:05→14:10)
[2023-01-08 11:08] LABS: BASOPHILS % (AUTO) 0.6 % (0-1); EOSINOPHILS # (AUTO) 0.1 X10'3 (0-0.9); EOSINOPHILS % (AUTO) 0.9 % (0-6); HEMATOCRIT 26.3 % (35.0-45.0); HEMOGLOBIN 8.4 g/dl (12.0-16.0); LYMPHOCYTES # (AUTO) 0.7 X10'3 (1.1-4.8); LYMPHOCYTES % (AUTO) 11.1 % (21-51); MEAN CORPUSCULAR HEMOGLOBIN 29.2 PG (27.0-31.0); MEAN CORPUSCULAR HGB CONC 31.9 g/dL (33.0-36.5); MEAN CORPUSCULAR VOLUME 91.5 FL (78-98); MEAN PLATELET VOLUME 8.3 FL (7.4-10.4); MONOCYTES # (AUTO) 0.9 X10'3 (0-0.9); MONOCYTES % (AUTO) 13.3 % (2-12); NEUTROPHILS # (AUTO) 4.8 X10'3 (1.8-7.7); NEUTROPHILS % (AUTO) 74.1 % (42-75); PLATELET COUNT 251 X10'3 (140-440); RED BLOOD COUNT 2.87 X10'6 (4.20-5.60); RED CELL DISTRIBUTION WIDTH 17.6 % (11.5-14.5); WHITE BLOOD COUNT 6.5 X10'3 (4.5-11.0)
[2023-01-08 11:13] LABS: ALANINE AMINOTRANSFERASE 18 U/L (12-78); ALBUMIN 2.9 G/DL (3.4-5.0); ALBUMIN/GLOBULIN RATIO 0.7 (1.1-1.5); ALKALINE PHOSPHATASE 191 IU/L (46-116); ANION GAP 12 (8-16); ASPARTATE AMINO TRANSFERASE 37 U/L (10-37); BILIRUBIN,TOTAL 2.4 MG/DL (0.1-1.0); BLOOD UREA NITROGEN 18 MG/DL (7-18); BUN/CREATININE RATIO 15.5 (10.0-20.0); CALCIUM 8.3 MG/DL (8.5-10.1); CHLORIDE 103 MMOL/L (99-107); CREATININE 1.16 MG/DL (0.40-0.90); GLUCOSE 100 MG/DL (70-104); POTASSIUM 3.6 MMOL/L (3.5-5.1); SODIUM 139 MMOL/L (135-145); TOTAL CARBON DIOXIDE 24.2 MMOL/L (24-32); eGFR 48 ML/MIN
[2023-01-08 12:55] VITALS: BP 89/51
[2023-01-08] MEDS ORDERED: albumin (human) 25% 100 ML IV solution IV ONE (13:00)
[2023-01-08] MEDS ORDERED: SPIR100T5 PO (13:46)
[2023-01-08] MEDS ORDERED: ATI1T PO (13:46)
[2023-01-08] MEDS ORDERED: PANT-47 PO (13:46)
[2023-01-08] MEDS ORDERED: FURO40TA4 PO (13:46)
[2023-01-08 14:04] LABS: LYMPHOCYTES,BODY FLUID 70 %; MONOCYTES,BODY FLUID 30 %
[2023-01-08 14:06] LABS: BF RBC COUNT 22.5 /CU MM; BF WBC COUNT 65 /CU MM (0-1000); BFAPPEAR CLEAR; BFCOLOR YELLOW; BFVOLUME 8 ML
[2023-01-08 14:07] LABS: NEUTROPHILS,BODY FLUID 0 %
== END 2023-01-08 15:43 | disposition home or self-care (01) ==
LOC: ER 08:49
DX: K70.31 Alcoholic cirrhosis of liver with ascites (principal); J45.909 Unspecified asthma, uncomplicated; Z79.899 Other long term (current) drug therapy
CPT/HCPCS: 36415; 49083; 80053; 82140; 85025; 85610; 89051; 96374; 99285; P9047

== ENCOUNTER 2023-01-29 06:38 | Emergency (ER) | payer BC ==
[~2023-01-29] VITALS: Ht 162.6 cm; Wt 77.3 kg
[~2023-01-29 06:38] MED LIST changes: +ATI1T PO; -HYDR-3965 PO; +PANT-47 PO; +SPIR100T5 PO
[2023-01-29 06:41] VITALS: TEMP 99
[2023-01-29 07:44] LABS: BASOPHILS # (AUTO) 0.1 X10'3 (0-0.2); EOSINOPHILS # (AUTO) 0.1 X10'3 (0-0.9); EOSINOPHILS % (AUTO) 2.6 % (0-6); HEMATOCRIT 24.3 % (35.0-45.0); HEMOGLOBIN 7.9 g/dl (12.0-16.0); LYMPHOCYTES # (AUTO) 0.8 X10'3 (1.1-4.8); LYMPHOCYTES % (AUTO) 16.5 % (21-51); MEAN CORPUSCULAR HEMOGLOBIN 29.5 PG (27.0-31.0); MEAN CORPUSCULAR HGB CONC 32.5 g/dL (33.0-36.5); MEAN CORPUSCULAR VOLUME 90.7 FL (78-98); MONOCYTES # (AUTO) 0.8 X10'3 (0-0.9); MONOCYTES % (AUTO) 17.2 % (2-12); NEUTROPHILS # (AUTO) 3.1 X10'3 (1.8-7.7); NEUTROPHILS % (AUTO) 62.7 % (42-75); PLATELET COUNT 190 X10'3 (140-440); RED BLOOD COUNT 2.67 X10'6 (4.20-5.60); RED CELL DISTRIBUTION WIDTH 18.3 % (11.5-14.5); WHITE BLOOD COUNT 4.9 X10'3 (4.5-11.0)
[2023-01-29 07:58] LABS: ALANINE AMINOTRANSFERASE 21 U/L (12-78); ALBUMIN/GLOBULIN RATIO 0.8 (1.1-1.5); ALKALINE PHOSPHATASE 183 IU/L (46-116); ANION GAP 12 (8-16); ASPARTATE AMINO TRANSFERASE 37 U/L (10-37); BILIRUBIN,TOTAL 1.5 MG/DL (0.1-1.0); BLOOD UREA NITROGEN 17 MG/DL (7-18); BUN/CREATININE RATIO 14.8 (10.0-20.0); CALCIUM 8.5 MG/DL (8.5-10.1); CHLORIDE 103 MMOL/L (99-107); CREATININE 1.15 MG/DL (0.40-0.90); GLUCOSE 86 MG/DL (70-104); LIPASE 194 U/L (73-393); POTASSIUM 3.4 MMOL/L (3.5-5.1); SODIUM 136 MMOL/L (135-145); TOTAL CARBON DIOXIDE 20.7 MMOL/L (24-32); eGFR 49 ML/MIN
[2023-01-29 08:44] LABS: ANISOCYTOSIS 2+; PLATELET ESTIMATE NORMAL
[2023-01-29 08:45] LABS: BURR CELLS 1+; ELLIPTOCYTES 1+; SCHISTOCYTES FEW
[2023-01-29 09:32] VITALS: BP 98/58; PULSE 90; RESP 20; O2SAT 100
[2023-01-29] MEDS ORDERED: PANT40TA54 PO (09:42)
[2023-01-29] MEDS ORDERED: SPIR100T5 PO (09:42)
[2023-01-29] MEDS ORDERED: LORA-269 PO ×2 (09:42→09:58)
[2023-01-29] MEDS ORDERED: FURO-149 PO (09:42)
== END 2023-01-29 09:57 | disposition home or self-care (01) ==
LOC: ER 06:38
DX: R18.8 Other ascites (principal); R10.9 Unspecified abdominal pain; M54.50 Low back pain, unspecified; J45.909 Unspecified asthma, uncomplicated; Z86.19 Personal history of other infectious and parasitic diseases; Z72.89 Other problems related to lifestyle; Z79.899 Other long term (current) drug therapy; Z98.890 Other specified postprocedural states; Z87.19 Personal history of other diseases of the digestive system
CPT/HCPCS: 36415; 49083; 80053; 83690; 85008; 85025; 85610; 99285

== ENCOUNTER 2023-02-11 07:39 | Emergency (ER) | payer BC ==
[~2023-02-11] VITALS: Ht 162.6 cm; Wt 75.0 kg
[~2023-02-11 07:39] MED LIST changes: +FURO-149 PO; +LORA-269 PO
[2023-02-11 07:44] VITALS: TEMP 98.5
[2023-02-11 11:07] LABS: BASOPHILS % (AUTO) 0.8 % (0-1); EOSINOPHILS # (AUTO) 0.1 X10'3 (0-0.9); EOSINOPHILS % (AUTO) 2.5 % (0-6); HEMATOCRIT 27.2 % (35.0-45.0); HEMOGLOBIN 8.9 g/dl (12.0-16.0); LYMPHOCYTES # (AUTO) 0.8 X10'3 (1.1-4.8); LYMPHOCYTES % (AUTO) 14.8 % (21-51); MEAN CORPUSCULAR HEMOGLOBIN 28.7 PG (27.0-31.0); MEAN CORPUSCULAR HGB CONC 32.5 g/dL (33.0-36.5); MEAN CORPUSCULAR VOLUME 88.2 FL (78-98); MEAN PLATELET VOLUME 8.6 FL (7.4-10.4); MONOCYTES # (AUTO) 0.9 X10'3 (0-0.9); MONOCYTES % (AUTO) 15.9 % (2-12); NEUTROPHILS # (AUTO) 3.6 X10'3 (1.8-7.7); PLATELET COUNT 204 X10'3 (140-440); RED BLOOD COUNT 3.09 X10'6 (4.20-5.60); RED CELL DISTRIBUTION WIDTH 16.7 % (11.5-14.5); WHITE BLOOD COUNT 5.5 X10'3 (4.5-11.0)
[2023-02-11 11:19] LABS: ANION GAP 11 (8-16); BLOOD UREA NITROGEN 16 MG/DL (7-18); CHLORIDE 104 MMOL/L (99-107); GLUCOSE 88 MG/DL (70-104); POTASSIUM 3.5 MMOL/L (3.5-5.1); SODIUM 138 MMOL/L (135-145); TOTAL CARBON DIOXIDE 23.5 MMOL/L (24-32)
[2023-02-11 11:20] LABS: ALANINE AMINOTRANSFERASE 23 U/L (12-78); ALBUMIN 3.1 G/DL (3.4-5.0); ALBUMIN/GLOBULIN RATIO 0.7 (1.1-1.5); ALKALINE PHOSPHATASE 201 IU/L (46-116); ASPARTATE AMINO TRANSFERASE 34 U/L (10-37); BILIRUBIN,TOTAL 1.7 MG/DL (0.1-1.0); CALCIUM 8.7 MG/DL (8.5-10.1); TOTAL PROTEIN 7.5 G/DL (6.4-8.2); eCRCL 54 ML/MIN; eGFR 57 ML/MIN
[2023-02-11 11:58] LABS: BILIRUBIN,URINE NEGATIVE (Neg); CLARITY,URINE SLIGHTLY CLOUDY (Clear); GLUCOSE, URINE NEGATIVE (Neg); KETONES,URINE NEGATIVE (Neg); LEUKOCYTE ESTERASE ,URINE MODERATE (Neg); NITRITES, URINE NEGATIVE (Neg); OCCULT BLOOD,URINE NEGATIVE (Neg); PROTEIN,URINE NEGATIVE (Neg)
[2023-02-11 12:05] LABS: COLOR,URINE DARK YELLOW (Yellow); UA COLLECTION TYPE CLN CATCH MIDSTREAM
[2023-02-11 12:07] LABS: BACTERIA,URINE 1+ /HPF (Neg); FINE GRANULAR CAST 0-3 /LPF (NEGATIVE); MUCUS STRANDS NONE SEEN /LPF (Neg); RBC,URINE NONE SEEN /HPF (0-2); SQUAMOUS EPITHELIAL CELL,UR MODERATE /LPF (FEW); WBC CLUMPS,URINE FEW /HPF (NEGATIVE)
[2023-02-11] MEDS ORDERED: albumin (human) 25% 100 ML IV solution IV ONE (12:20)
[2023-02-11 12:44] VITALS: PULSE 87; RESP 18; O2SAT 100
[2023-02-11] MEDS ORDERED: LORazepam 1 MG tablet PO ONE (14:40)
--- NOTE | 2023-02-11 15:20 | NUR ---
Patient still awaiting for paracentesis. Supplies at bedside and Ativan PO was given. Dr. Morfin was aware patient waiting
--- NOTE | 2023-02-11 16:29 | NUR ---
Parecentesis performed by Dr. Morfin at bedside
[2023-02-11 16:54] VITALS: BP 103/62
== END 2023-02-11 17:59 | disposition home or self-care (01) ==
LOC: ER 07:39
DX: K70.31 Alcoholic cirrhosis of liver with ascites (principal); J45.909 Unspecified asthma, uncomplicated; Z86.19 Personal history of other infectious and parasitic diseases; Z98.890 Other specified postprocedural states; Z79.899 Other long term (current) drug therapy
CPT/HCPCS: 49083; 76705; 80053; 81001; 85025; 87088; 96365; 99285; P9047; A6449

== ENCOUNTER 2023-02-14 02:47 | Inpatient (IN) | payer BC ==
[~2023-02-14] VITALS: Ht 162.6 cm; Wt 72.8 kg
[2023-02-14] MEDS ORDERED: ondansetron 4mg rapidly disintigrating tab PO ONE (03:20)
[2023-02-14 04:25] LABS: BASOPHILS % (AUTO) 0.6 % (0-1); EOSINOPHILS # (AUTO) 0.1 X10'3 (0-0.9); EOSINOPHILS % (AUTO) 2.2 % (0-6); HEMATOCRIT 28.4 % (35.0-45.0); HEMOGLOBIN 8.8 g/dl (12.0-16.0); LYMPHOCYTES # (AUTO) 0.8 X10'3 (1.1-4.8); LYMPHOCYTES % (AUTO) 15.5 % (21-51); MEAN CORPUSCULAR HEMOGLOBIN 28.5 PG (27.0-31.0); MEAN CORPUSCULAR HGB CONC 30.9 g/dL (33.0-36.5); MEAN PLATELET VOLUME 8.4 FL (7.4-10.4); MONOCYTES # (AUTO) 0.9 X10'3 (0-0.9); MONOCYTES % (AUTO) 16.7 % (2-12); NEUTROPHILS # (AUTO) 3.4 X10'3 (1.8-7.7); PLATELET COUNT 218 X10'3 (140-440); RED BLOOD COUNT 3.09 X10'6 (4.20-5.60); RED CELL DISTRIBUTION WIDTH 17.3 % (11.5-14.5); WHITE BLOOD COUNT 5.2 X10'3 (4.5-11.0)
[2023-02-14 04:38] LABS: ALANINE AMINOTRANSFERASE 20 U/L (12-78); ALBUMIN/GLOBULIN RATIO 0.7 (1.1-1.5); ALKALINE PHOSPHATASE 199 IU/L (46-116); ANION GAP 14 (8-16); ASPARTATE AMINO TRANSFERASE 35 U/L (10-37); BILIRUBIN,TOTAL 1.6 MG/DL (0.1-1.0); BLOOD UREA NITROGEN 25 MG/DL (7-18); BUN/CREATININE RATIO 16.9 (10.0-20.0); CHLORIDE 103 MMOL/L (99-107); CREATININE 1.48 MG/DL (0.40-0.90); ETHANOL < 10 MG/DL (<10); GLUCOSE 99 MG/DL (70-104); LIPASE 96 U/L (73-393); MAGNESIUM 2.1 MG/DL (1.5-2.4); POTASSIUM 3.7 MMOL/L (3.5-5.1); SODIUM 139 MMOL/L (135-145); TOTAL CARBON DIOXIDE 22.2 MMOL/L (24-32); TOTAL PROTEIN 7.1 G/DL (6.4-8.2); eCRCL 36 ML/MIN; eGFR 36 ML/MIN
[2023-02-14 04:42] LABS: CALCIUM 8.9 MG/DL (8.5-10.1)
[2023-02-14] MEDS ORDERED: lactulose 20gm/30ml cup PO ONE (04:45)
[2023-02-14 05:09] LABS: ACANTHOCYTES 1+; ANISOCYTOSIS 1+; ELLIPTOCYTES FEW; PLATELET ESTIMATE NORMAL; TOTAL CELLS COUNTED 100
[2023-02-14 05:10] LABS: POIKILOCYTOSIS 1+
[2023-02-14] MEDS ORDERED: diphenhydrAMINE 50 mg/ml inj IV PRN (05:10)
[2023-02-14] MEDS ORDERED: ondansetron 4mg rapidly disintigrating tab PO PRN (05:10)
[2023-02-14] MEDS ORDERED: ondansetron/PF 4mg/2ml inj IV PRN (05:10)
[2023-02-14] MEDS ORDERED: diphenhydrAMINE 25mg capsule PO PRN (05:10)
[2023-02-14] MEDS ORDERED: magnesium hydroxide 30ml (MOM) UD suspension PO PRN (05:10)
[2023-02-14] MEDS ORDERED: morphine 2 MG/ML inj. syringe IV PRN (05:10)
[2023-02-14] MEDS ORDERED: acetaminophen 325mg tablet PO PRN ×2 (05:10)
[2023-02-14] MEDS ORDERED: acetaminophen 650mg rectal suppository RC PRN (05:10)
[2023-02-14] MEDS ORDERED: mag hydrox/Alum hydrox/simeth 30ml oral suspension PO PRN (05:10)
[2023-02-14] MEDS ORDERED: bisacodyl 10mg suppository rectal RC PRN (05:10)
[2023-02-14] MEDS ORDERED: HYDROcodone/acetaminophen 5mg/325mg tablet PO PRN (05:10)
[2023-02-14] MEDS: normal saline 1000ml 1,000 ML IV SCH ×2 (07:37→17:05)
[2023-02-14] MEDS: lactulose 20gm/30ml cup PO SCH ×2 (07:37→17:03)
[2023-02-14] MEDS: docusate sod 100mg capsule PO SCH ×2 (07:37→20:00)
[2023-02-14 08:58] LABS: PHOSPHORUS 4.5 MG/DL (2.3-4.5)
[2023-02-14 09:00] LABS: APTT 27 SECONDS (22-32); INR 1.1 INR; PROTHROMBIN TIME 12.1 SECONDS (9.0-12.0)
[2023-02-14] MEDS ORDERED: PANT-47 PO (11:27)
[2023-02-14] MEDS ORDERED: MULT-1085 PO (11:27)
[2023-02-14] MEDS ORDERED: POTA-207 PO (11:27)
[2023-02-14] MEDS ORDERED: FURO-149 PO (11:27)
[2023-02-14] MEDS ORDERED: SPIR50TA5 PO (11:27)
[2023-02-14] MEDS ORDERED: MAGN200T5 PO (11:27)
[2023-02-14] MEDS ORDERED: CLON2TAB44 PO (11:27)
[2023-02-14] MEDS: rifaximin 550mg tablet PO SCH ×2 (12:01→21:31)
--- NOTE | 2023-02-14 15:48 | NUR ---
PT UP TO BR X4 VOIDING/X3 BMS. 60% BREAKFAST 75% LUNCH
--- NOTE | 2023-02-14 17:09 | NUR ---
Paged Dr. Diaz to address med rec.
--- NOTE | 2023-02-14 18:09 | NUR ---
REPORT GIVEN TO MIL CASTELLANOS ASSUMING CARE OF PT.
--- NOTE | 2023-02-14 18:25 | NUR ---
Patient in room ORTHO 4022. I have received report from EMANUEL Escobedo and had the opportunity to ask questions and assume patient care.
--- NOTE | 2023-02-14 19:05 | NUR ---
Patient in room ED 8. I have received report from kasey CASTELLANOS and had the opportunity to ask questions and awaiting patients arrival . report given to Arpita CASTELLANOS
[2023-02-14 19:20] VITALS: BP 141/64; PULSE 53; RESP 16; TEMP 98.1; O2SAT 94
[2023-02-14 20:20] VITALS: RESP 18; O2SAT 100
[2023-02-14] MEDS: magnesium oxide 400mg tablet PO SCH (21:30)
[2023-02-14] MEDS: clonazePAM 1mg tablet PO PRN (21:46)
[2023-02-14 22:00] VITALS: BP 97/58; PULSE 93; RESP 18; TEMP 97.1; O2SAT 100
[2023-02-15] MEDS: lactulose 20gm/30ml cup PO SCH ×4 (00:14→20:16)
[2023-02-15] MEDS: temazepam 15mg capsule PO PRN ×2 (01:05→20:55)
[2023-02-15] MEDS: normal saline 1000ml 1,000 ML IV SCH ×2 (03:50→11:10)
[2023-02-15 06:00] VITALS: BP 85/50; PULSE 89; RESP 14; TEMP 97.1; O2SAT 99
[2023-02-15 06:09] LABS: BASOPHILS % (AUTO) 0.7 % (0-1); EOSINOPHILS # (AUTO) 0.1 X10'3 (0-0.9); EOSINOPHILS % (AUTO) 3.2 % (0-6); LYMPHOCYTES # (AUTO) 0.7 X10'3 (1.1-4.8); LYMPHOCYTES % (AUTO) 18.8 % (21-51); MEAN CORPUSCULAR HEMOGLOBIN 28.7 PG (27.0-31.0); MEAN CORPUSCULAR HGB CONC 32.9 g/dL (33.0-36.5); MEAN CORPUSCULAR VOLUME 87.2 FL (78-98); MEAN PLATELET VOLUME 8.2 FL (7.4-10.4); MONOCYTES # (AUTO) 0.8 X10'3 (0-0.9); MONOCYTES % (AUTO) 21.1 % (2-12); NEUTROPHILS # (AUTO) 2.1 X10'3 (1.8-7.7); NEUTROPHILS % (AUTO) 56.2 % (42-75); PLATELET COUNT 157 X10'3 (140-440); RED BLOOD COUNT 2.42 X10'6 (4.20-5.60); RED CELL DISTRIBUTION WIDTH 16.3 % (11.5-14.5); WHITE BLOOD COUNT 3.8 X10'3 (4.5-11.0)
[2023-02-15 06:27] LABS: HEMOGLOBIN 6.9 g/dl (12.0-16.0)
[2023-02-15 06:28] LABS: HEMATOCRIT 21.1 % (35.0-45.0)
[2023-02-15 06:34] LABS: ALANINE AMINOTRANSFERASE 16 U/L (12-78); ALBUMIN 2.3 G/DL (3.4-5.0); ALBUMIN/GLOBULIN RATIO 0.7 (1.1-1.5); ALKALINE PHOSPHATASE 129 IU/L (46-116); ANION GAP 13 (8-16); ASPARTATE AMINO TRANSFERASE 24 U/L (10-37); BILIRUBIN,TOTAL 1.9 MG/DL (0.1-1.0); BLOOD UREA NITROGEN 16 MG/DL (7-18); BUN/CREATININE RATIO 15.4 (10.0-20.0); CALCIUM 7.7 MG/DL (8.5-10.1); CHLORIDE 108 MMOL/L (99-107); CHOL/HDL RATIO 2.6 (0.00-4.99); CHOLESTEROL 116 MG/DL (0-200); CREATININE 1.04 MG/DL (0.40-0.90); GLUCOSE 88 MG/DL (70-104); HDL CHOLESTEROL 44 MG/DL (35-60); LDL CHOLESTEROL 58 MG/DL (50-100); POTASSIUM 3.7 MMOL/L (3.5-5.1); SODIUM 141 MMOL/L (135-145); TOTAL CARBON DIOXIDE 20.3 MMOL/L (24-32); TOTAL PROTEIN 5.5 G/DL (6.4-8.2); TRIGLYCERIDES 50 MG/DL (20-135); eCRCL 52 ML/MIN; eGFR 55 ML/MIN
--- NOTE | 2023-02-15 06:44 | NUR ---
Problems reprioritized. Patient report given, questions answered & plan of care reviewed with EMANUEL Barone.
--- NOTE | 2023-02-15 07:03 | NUR ---
Patient in room ORTHO 4022. I have received report from Arpita and had the opportunity to ask questions and assume patient care.
--- NOTE | 2023-02-15 07:25 | NUR ---
Phoned resident chemical production engineer, advised of critical H&H. No orders received.
[2023-02-15] MEDS ORDERED: pantoprazole 40mg Tablet.DR PO SCH (08:00)
[2023-02-15 08:17] VITALS: RESP 14; O2SAT 99
[2023-02-15] MEDS: magnesium oxide 400mg tablet PO SCH ×2 (09:52→20:16)
[2023-02-15] MEDS: potassium Cl 20 mEq SR tablet PO SCH (09:52)
[2023-02-15] MEDS: docusate sod 100mg capsule PO SCH ×2 (09:52→20:00)
[2023-02-15] MEDS: multivitamins, therapeutics tablet PO SCH (09:53)
[2023-02-15] MEDS: rifaximin 550mg tablet PO SCH ×2 (09:53→20:16)
[2023-02-15 10:00] VITALS: BP 94/62; PULSE 84; RESP 16; TEMP 98.2; O2SAT 100
[2023-02-15] MEDS: octreotide inj. 500 MCG in normal saline 100ml IV soln 97.5 ML IV SCH (14:38)
[2023-02-15 15:20] LABS: OCCULT BLOOD STOOL NEGATIVE (Neg)
[2023-02-15] MEDS ORDERED: pantoprazole 40mg IV 80 MG in normal saline 100ml IV soln 100 ML IV ONE ×2 (16:12→17:00)
[2023-02-15 18:00] VITALS: BP 99/58; PULSE 88; RESP 16; TEMP 97.2; O2SAT 98
--- NOTE | 2023-02-15 18:25 | NUR ---
Patient in room ORTHO 4022. I have received report from EMANUEL Barone and had the opportunity to ask questions and assume patient care.
--- NOTE | 2023-02-15 18:40 | NUR ---
Problems reprioritized. Patient report given, questions answered & plan of care reviewed with
[2023-02-15 19:38] LABS: HEMATOCRIT 26.9 % (35.0-45.0); HEMOGLOBIN 8.6 g/dl (12.0-16.0); MEAN CORPUSCULAR HEMOGLOBIN 28.4 PG (27.0-31.0); MEAN CORPUSCULAR HGB CONC 32.1 g/dL (33.0-36.5); MEAN CORPUSCULAR VOLUME 88.6 FL (78-98); MEAN PLATELET VOLUME 8.2 FL (7.4-10.4); PLATELET COUNT 206 X10'3 (140-440); RED BLOOD COUNT 3.03 X10'6 (4.20-5.60); RED CELL DISTRIBUTION WIDTH 16.7 % (11.5-14.5); WHITE BLOOD COUNT 5.8 X10'3 (4.5-11.0)
[2023-02-15] MEDS: pantoprazole 40MG/NS 100ML BAG 100 ML IV SCH (20:16)
[2023-02-15 20:20] VITALS: RESP 14; O2SAT 98
[2023-02-15] MEDS: clonazePAM 1mg tablet PO PRN (20:55)
[2023-02-15 22:00] VITALS: BP 98/59; PULSE 91; RESP 14; TEMP 97.1; O2SAT 100
[2023-02-16] VITALS (22 sets, daily range): BP systolic 86–108; BP diastolic 45–64; PULSE 61–99; RESP 14–27; TEMP 97.6–98.9; O2SAT 96–100
[2023-02-16] MEDS: lactulose 20gm/30ml cup PO SCH ×4 (02:00→21:11)
[2023-02-16] MEDS: octreotide inj. 500 MCG in normal saline 100ml IV soln 97.5 ML IV SCH (05:58)
--- NOTE | 2023-02-16 06:30 | NUR ---
Patient in room ORTHO 4022. I have received report from Arpita and had the opportunity to ask questions and assume patient care.
--- NOTE | 2023-02-16 06:31 | NUR ---
Problems reprioritized. Patient report given, questions answered & plan of care reviewed with EMANUEL Yi.
[2023-02-16 07:44] LABS: BASOPHILS % (AUTO) 0.5 % (0-1); EOSINOPHILS # (AUTO) 0.1 X10'3 (0-0.9); EOSINOPHILS % (AUTO) 1.5 % (0-6); HEMATOCRIT 25.6 % (35.0-45.0); HEMOGLOBIN 8.1 g/dl (12.0-16.0); LYMPHOCYTES # (AUTO) 0.5 X10'3 (1.1-4.8); LYMPHOCYTES % (AUTO) 7.4 % (21-51); MEAN CORPUSCULAR HEMOGLOBIN 27.9 PG (27.0-31.0); MEAN CORPUSCULAR HGB CONC 31.5 g/dL (33.0-36.5); MEAN CORPUSCULAR VOLUME 88.6 FL (78-98); MEAN PLATELET VOLUME 8.4 FL (7.4-10.4); MONOCYTES # (AUTO) 1.1 X10'3 (0-0.9); MONOCYTES % (AUTO) 15.8 % (2-12); NEUTROPHILS # (AUTO) 5.3 X10'3 (1.8-7.7); NEUTROPHILS % (AUTO) 74.8 % (42-75); PLATELET COUNT 182 X10'3 (140-440); RED BLOOD COUNT 2.89 X10'6 (4.20-5.60); RED CELL DISTRIBUTION WIDTH 16.5 % (11.5-14.5); WHITE BLOOD COUNT 7.2 X10'3 (4.5-11.0)
[2023-02-16 07:56] LABS: ALANINE AMINOTRANSFERASE 16 U/L (12-78); ALBUMIN 2.5 G/DL (3.4-5.0); ALBUMIN/GLOBULIN RATIO 0.7 (1.1-1.5); ALKALINE PHOSPHATASE 133 IU/L (46-116); ANION GAP 10 (8-16); ASPARTATE AMINO TRANSFERASE 30 U/L (10-37); BILIRUBIN,TOTAL 1.8 MG/DL (0.1-1.0); BLOOD UREA NITROGEN 15 MG/DL (7-18); BUN/CREATININE RATIO 15.6 (10.0-20.0); CALCIUM 7.9 MG/DL (8.5-10.1); CHLORIDE 109 MMOL/L (99-107); CREATININE 0.96 MG/DL (0.40-0.90); GLUCOSE 127 MG/DL (70-104); POTASSIUM 4.3 MMOL/L (3.5-5.1); SODIUM 138 MMOL/L (135-145); TOTAL CARBON DIOXIDE 18.8 MMOL/L (24-32); eCRCL 56 ML/MIN; eGFR 60 ML/MIN
[2023-02-16] MEDS: multivitamins, therapeutics tablet PO SCH (08:00)
[2023-02-16] MEDS: rifaximin 550mg tablet PO SCH ×2 (08:00→21:11)
[2023-02-16] MEDS: docusate sod 100mg capsule PO SCH ×2 (08:00→21:11)
[2023-02-16] MEDS: potassium Cl 20 mEq SR tablet PO SCH (08:00)
[2023-02-16] MEDS: magnesium oxide 400mg tablet PO SCH ×2 (08:00→21:11)
[2023-02-16] MEDS ORDERED: HYDROmorphone inj. 0.5 MG/0.5 ML DISP.SYRIN IM ONE (08:55)
[2023-02-16] MEDS: pantoprazole 40MG/NS 100ML BAG 100 ML IV SCH ×2 (09:02→21:11)
[2023-02-16] MEDS ORDERED: HYDROmorphone inj. 0.5 MG/0.5 ML DISP.SYRIN IV ONE (09:25)
[2023-02-16] MEDS ORDERED: albumin (human) 25% 100 ML IV solution IV ONE ×2 (10:20→10:45)
[2023-02-16 12:35] LABS: LYMPHOCYTES,BODY FLUID 47 %; MONOCYTES,BODY FLUID 52 %; NEUTROPHILS,BODY FLUID 1 %
[2023-02-16 12:46] LABS: GLUCOSE,BODY FLUID 137 MG/DL; LDH,BODY FLUID 49 U/L
[2023-02-16 12:47] LABS: BF MESOTHELIAL CELLS FEW; BF RBC COUNT 121 /CU MM; BF WBC COUNT 51 /CU MM (0-1000); BFAPPEAR CLEAR; BFCOLOR YELLOW; BFSOURCE ASCITES FLD; BFVOLUME 60 ML
[2023-02-16 12:56] LABS: TOTAL PROTEIN,BODY FLUID < 2.0 G/DL
[2023-02-16] MEDS ORDERED: LIDOcaine Viscous 15ml cup ONE (13:26)
[2023-02-16] MEDS ORDERED: MIDAZolam 1 MG/ML 5ML VIAL ONE (13:26)
[2023-02-16] MEDS ORDERED: fentaNYL/PF 50MCG/1 ML 2ML syringe ONE (13:26)
--- NOTE | 2023-02-16 18:10 | NUR ---
Patient in room ORTHO 4022. I have received report from EMANUEL Yi and had the opportunity to ask questions and assume patient care.
--- NOTE | 2023-02-16 18:16 | NUR ---
Problems reprioritized. Patient report given, questions answered & plan of care reviewed with
[2023-02-16] MEDS: temazepam 15mg capsule PO PRN (21:11)
[2023-02-16] MEDS: clonazePAM 1mg tablet PO PRN (21:11)
[2023-02-17] MEDS: lactulose 20gm/30ml cup PO SCH ×3 (02:08→15:10)
[2023-02-17 06:35] VITALS: BP 99/60; PULSE 95; RESP 18; TEMP 98.1; O2SAT 100
--- NOTE | 2023-02-17 07:09 | NUR ---
Problems reprioritized. Patient report given, questions answered & plan of care reviewed with EMANUEL Yi.
[2023-02-17] MEDS: potassium Cl 20 mEq SR tablet PO SCH (07:59)
[2023-02-17] MEDS: multivitamins, therapeutics tablet PO SCH (07:59)
[2023-02-17] MEDS: magnesium oxide 400mg tablet PO SCH (07:59)
[2023-02-17] MEDS: docusate sod 100mg capsule PO SCH (07:59)
[2023-02-17] MEDS: pantoprazole 40MG/NS 100ML BAG 100 ML IV SCH (07:59)
[2023-02-17 08:00] VITALS: RESP 16; O2SAT 98
[2023-02-17] MEDS: rifaximin 550mg tablet PO SCH (08:01)
[2023-02-17 08:06] LABS: BASOPHILS % (AUTO) 0.4 % (0-1); EOSINOPHILS % (AUTO) 1.9 % (0-6); HEMATOCRIT 24.2 % (35.0-45.0); HEMOGLOBIN 7.8 g/dl (12.0-16.0); LYMPHOCYTES % (AUTO) 4.8 % (21-51); MEAN CORPUSCULAR HEMOGLOBIN 28.6 PG (27.0-31.0); MEAN CORPUSCULAR HGB CONC 32.4 g/dL (33.0-36.5); MEAN CORPUSCULAR VOLUME 88.3 FL (78-98); MEAN PLATELET VOLUME 8.4 FL (7.4-10.4); MONOCYTES % (AUTO) 11.9 % (2-12); PLATELET COUNT 185 X10'3 (140-440); RED BLOOD COUNT 2.74 X10'6 (4.20-5.60); RED CELL DISTRIBUTION WIDTH 15.8 % (11.5-14.5); WHITE BLOOD COUNT 10.1 X10'3 (4.5-11.0)
[2023-02-17 08:07] LABS: EOSINOPHILS # (AUTO) 0.2 X10'3 (0-0.9); LYMPHOCYTES # (AUTO) 0.5 X10'3 (1.1-4.8); MONOCYTES # (AUTO) 1.2 X10'3 (0-0.9); NEUTROPHILS # (AUTO) 8.2 X10'3 (1.8-7.7)
[2023-02-17 08:24] LABS: ALANINE AMINOTRANSFERASE 15 U/L (12-78); ALBUMIN 2.5 G/DL (3.4-5.0); ALBUMIN/GLOBULIN RATIO 0.8 (1.1-1.5); ALKALINE PHOSPHATASE 108 IU/L (46-116); ANION GAP 11 (8-16); ASPARTATE AMINO TRANSFERASE 25 U/L (10-37); BILIRUBIN,TOTAL 2.1 MG/DL (0.1-1.0); BLOOD UREA NITROGEN 12 MG/DL (7-18); BUN/CREATININE RATIO 13.5 (10.0-20.0); CALCIUM 7.8 MG/DL (8.5-10.1); CHLORIDE 107 MMOL/L (99-107); CREATININE 0.89 MG/DL (0.40-0.90); GLUCOSE 124 MG/DL (70-104); POTASSIUM 3.2 MMOL/L (3.5-5.1); SODIUM 136 MMOL/L (135-145); TOTAL CARBON DIOXIDE 17.6 MMOL/L (24-32); TOTAL PROTEIN 5.7 G/DL (6.4-8.2); eCRCL 60 ML/MIN; eGFR 65 ML/MIN
[2023-02-17 10:18] VITALS: BP 104/60; PULSE 91; RESP 16; TEMP 98.3; O2SAT 100
[2023-02-17 12:06] LABS: INR 1.2 INR; PROTHROMBIN TIME 13.2 SECONDS (9.0-12.0)
[2023-02-17] MEDS ORDERED: potassium Cl 40MEQ/1/2NS 520ml 520 ML IV PRN (14:20)
[2023-02-17] MEDS ORDERED: potassium Cl 20 mEq SR tablet PO PRN ×2 (14:20)
[2023-02-17] MEDS ORDERED: LACT10SO7 PO (14:52)
[2023-02-17] MEDS ORDERED: RIFA550T PO (14:52)
--- NOTE | 2023-02-17 18:25 | NUR ---
Pt discharged home with . Pt left with all belongings and in stable condition.
[2023-02-17] MEDS ORDERED: pantoprazole 40mg Tablet.DR PO SCH (20:00)
[2023-02-17] MEDS ORDERED: K and/or MAG REPLACEMENT MC SCH (20:00)
== END 2023-02-17 23:16 | disposition home or self-care (01) | DRG 441 ==
LOC: ER 02:48 → ED HOLD 05:13 → ORTHO 4S 21:08
PROVIDERS: ADMIT Family Medicine; ATTEND Family Medicine
PROC: 0W9G3ZX Drainage of Peritoneal Cavity, Percutaneous Approach, Diagnostic (ICD-10-PCS; principal; 2023-02-16)
PROC: 0DB78ZX Excision of Stomach, Pylorus, Via Natural or Artificial Opening Endoscopic, Diagnostic (ICD-10-PCS; 2023-02-16)
DX: K76.82 Hepatic encephalopathy (principal); G93.41 Metabolic encephalopathy; K76.7 Hepatorenal syndrome; K76.6 Portal hypertension; N17.9 Acute kidney failure, unspecified; D64.9 Anemia, unspecified; J45.909 Unspecified asthma, uncomplicated; F41.9 Anxiety disorder, unspecified; W10.1XXA Fall (on)(from) sidewalk curb, initial encounter; K31.89 Other diseases of stomach and duodenum; E86.1 Hypovolemia; K29.00 Acute gastritis without bleeding; B19.20 Unspecified viral hepatitis C without hepatic coma; I12.9 Hypertensive chronic kidney disease with stage 1 through stage 4 chronic kidney disease, or unspecified chronic kidney disease; K70.31 Alcoholic cirrhosis of liver with ascites; N18.9 Chronic kidney disease, unspecified; Z80.1 Family history of malignant neoplasm of trachea, bronchus and lung; Z87.11 Personal history of peptic ulcer disease; Z83.3 Family history of diabetes mellitus; Y93.89 Activity, other specified; Y92.89 Other specified places as the place of occurrence of the external cause; Y99.8 Other external cause status; Z79.899 Other long term (current) drug therapy
CPT/HCPCS: 36415; 43239; 49083; 70450; 80053; 80061; 80320; 82140; 82272; 82945; 82948; 83036; 83615; 83690; 83735; 83880; 84100; 84157; 85007; 85025; 85027; 85610; 85730; 86885; 86900; 86901; 89051; 93005; 97161; 99152; 99285; A4620; A6212; C1729; C9113; G0378; J1170; J2250; J2354; J3010; J3490; J7030; J7040; P9047; Q0163

== ENCOUNTER 2023-02-20 12:07 | Emergency (ER) | payer BC ==
[~2023-02-20] VITALS: Ht 162.6 cm; Wt 72.6 kg
[~2023-02-20 12:07] MED LIST changes: -ATI1T PO; -FURO40TA4 PO; +LACT10SO7 PO; -LORA-269 PO; -PANT40TA54 PO; -POTA-197 PO; +POTA-207 PO; +RIFA550T PO; -SPIR100T5 PO; -SPIR25TA PO; +SPIR50TA5 PO; -ZOLP5TAB2 PO
[2023-02-20 12:09] VITALS: BP 101/64; PULSE 101; RESP 16; TEMP 98.2; O2SAT 100
[2023-02-20 12:45] LABS: BASOPHILS # (AUTO) 0.1 X10'3 (0-0.2); BASOPHILS % (AUTO) 0.8 % (0-1); EOSINOPHILS # (AUTO) 0.2 X10'3 (0-0.9); EOSINOPHILS % (AUTO) 2.7 % (0-6); HEMATOCRIT 27.2 % (35.0-45.0); HEMOGLOBIN 8.6 g/dl (12.0-16.0); LYMPHOCYTES # (AUTO) 0.8 X10'3 (1.1-4.8); LYMPHOCYTES % (AUTO) 11.6 % (21-51); MEAN CORPUSCULAR HEMOGLOBIN 28.2 PG (27.0-31.0); MEAN CORPUSCULAR HGB CONC 31.6 g/dL (33.0-36.5); MEAN CORPUSCULAR VOLUME 89.4 FL (78-98); MEAN PLATELET VOLUME 8.2 FL (7.4-10.4); MONOCYTES # (AUTO) 0.9 X10'3 (0-0.9); MONOCYTES % (AUTO) 14.3 % (2-12); NEUTROPHILS # (AUTO) 4.7 X10'3 (1.8-7.7); NEUTROPHILS % (AUTO) 70.6 % (42-75); PLATELET COUNT 270 X10'3 (140-440); RED BLOOD COUNT 3.04 X10'6 (4.20-5.60); RED CELL DISTRIBUTION WIDTH 16.7 % (11.5-14.5); WHITE BLOOD COUNT 6.6 X10'3 (4.5-11.0)
[2023-02-20 13:22] LABS: ALANINE AMINOTRANSFERASE 19 U/L (12-78); ALBUMIN 2.9 G/DL (3.4-5.0); ALBUMIN/GLOBULIN RATIO 0.7 (1.1-1.5); ALKALINE PHOSPHATASE 242 IU/L (46-116); ANION GAP 11 (8-16); ASPARTATE AMINO TRANSFERASE 32 U/L (10-37); BILIRUBIN,TOTAL 1.5 MG/DL (0.1-1.0); BLOOD UREA NITROGEN 11 MG/DL (7-18); BUN/CREATININE RATIO 11.8 (10.0-20.0); CHLORIDE 107 MMOL/L (99-107); CREATININE 0.93 MG/DL (0.40-0.90); GLUCOSE 105 MG/DL (70-104); LIPASE 208 U/L (73-393); POTASSIUM 3.7 MMOL/L (3.5-5.1); SODIUM 136 MMOL/L (135-145); TOTAL CARBON DIOXIDE 18.4 MMOL/L (24-32); eCRCL 58 ML/MIN; eGFR 62 ML/MIN
[2023-02-20 13:26] LABS: CALCIUM 8.1 MG/DL (8.5-10.1)
[2023-02-20] MEDS ORDERED: ketorolac tromethamine 15mg/ml inj. IM ONE (15:50)
== END 2023-02-20 16:10 | disposition home or self-care (01) ==
LOC: ER 12:08
DX: R10.13 Epigastric pain (principal); J45.909 Unspecified asthma, uncomplicated; Z86.19 Personal history of other infectious and parasitic diseases; Z72.89 Other problems related to lifestyle; Z79.899 Other long term (current) drug therapy
CPT/HCPCS: 36415; 80053; 83690; 85025; 96372; 99283; J1885

== ENCOUNTER 2023-02-23 12:53 | Emergency (ER) | payer BC ==
[~2023-02-23] VITALS: Ht 177.8 cm; Wt 150.0 kg
[2023-02-23 13:40] LABS: BASOPHILS % (AUTO) 0.8 % (0-1); EOSINOPHILS # (AUTO) 0.1 X10'3 (0-0.9); EOSINOPHILS % (AUTO) 2.2 % (0-6); HEMATOCRIT 25.8 % (35.0-45.0); HEMOGLOBIN 8.2 g/dl (12.0-16.0); LYMPHOCYTES # (AUTO) 0.7 X10'3 (1.1-4.8); LYMPHOCYTES % (AUTO) 12.3 % (21-51); MEAN CORPUSCULAR HGB CONC 31.8 g/dL (33.0-36.5); MEAN PLATELET VOLUME 8.1 FL (7.4-10.4); MONOCYTES # (AUTO) 1.1 X10'3 (0-0.9); MONOCYTES % (AUTO) 17.8 % (2-12); NEUTROPHILS % (AUTO) 66.9 % (42-75); PLATELET COUNT 275 X10'3 (140-440); RED BLOOD COUNT 2.94 X10'6 (4.20-5.60); RED CELL DISTRIBUTION WIDTH 16.5 % (11.5-14.5)
[2023-02-23 13:52] VITALS: TEMP 97.8
[2023-02-23 14:08] LABS: TOTAL CELLS COUNTED 100
[2023-02-23 14:09] LABS: ANISOCYTOSIS 1+; LARGE PLATELETS FEW; PLATELET ESTIMATE NORMAL
[2023-02-23 14:41] LABS: ALANINE AMINOTRANSFERASE 25 U/L (12-78); ALBUMIN 2.9 G/DL (3.4-5.0); ALBUMIN/GLOBULIN RATIO 0.8 (1.1-1.5); ALKALINE PHOSPHATASE 203 IU/L (46-116); AMYLASE 76 U/L (25-115); ANION GAP 15 (8-16); ASPARTATE AMINO TRANSFERASE 35 U/L (10-37); BILIRUBIN,TOTAL 2.2 MG/DL (0.1-1.0); BLOOD UREA NITROGEN 13 MG/DL (7-18); CALCIUM 8.1 MG/DL (8.5-10.1); CHLORIDE 104 MMOL/L (99-107); GLUCOSE 97 MG/DL (70-104); LIPASE 110 U/L (73-393); POTASSIUM 4.4 MMOL/L (3.5-5.1); SODIUM 135 MMOL/L (135-145); TOTAL CARBON DIOXIDE 15.9 MMOL/L (24-32); TOTAL PROTEIN 6.4 G/DL (6.4-8.2); eCRCL 67 ML/MIN; eGFR 57 ML/MIN
[2023-02-23 18:03] LABS: BILIRUBIN,URINE NEGATIVE (Neg); CLARITY,URINE CLOUDY (Clear); COLOR,URINE YELLOW (Yellow); GLUCOSE, URINE NEGATIVE (Neg); KETONES,URINE NEGATIVE (Neg); LEUKOCYTE ESTERASE ,URINE LARGE (Neg); NITRITES, URINE NEGATIVE (Neg); OCCULT BLOOD,URINE TRACE-INTACT (Neg); PROTEIN,URINE TRACE mg/dl (Neg); UROBILINOGEN,URINE 0.2 E.U/dL (0.2-1.0)
[2023-02-23 18:05] LABS: UA COLLECTION TYPE CLN CATCH MIDSTREAM
[2023-02-23 18:15] LABS: BACTERIA,URINE 2+ /HPF (Neg); SQUAMOUS EPITHELIAL CELL,UR MODERATE /LPF (FEW); WBC,URINE 30-50 /HPF (0-4)
[2023-02-23 18:16] LABS: MUCUS STRANDS FEW /LPF (Neg); TRANSITIONAL EPI CELLS,URINE FEW /HPF
[2023-02-23] MEDS ORDERED: albumin (human) 25% 100 ML IV solution IV ONE (22:05)
[2023-02-23] MEDS ORDERED: HYDROcodone/acetaminophen 5mg/325mg tablet PO ONE (23:20)
[2023-02-23] MEDS ORDERED: cephalexin 250mg capsule PO ONE (23:25)
[2023-02-23] MEDS ORDERED: CEPH250T PO (23:33)
[2023-02-24 00:18] VITALS: BP 105/62; PULSE 77; RESP 18; O2SAT 100
== END 2023-02-24 00:20 | disposition home or self-care (01) ==
LOC: ER 12:54
DX: R18.8 Other ascites (principal); N39.0 Urinary tract infection, site not specified; J45.909 Unspecified asthma, uncomplicated; Z79.899 Other long term (current) drug therapy
CPT/HCPCS: 49083; 80053; 81001; 82150; 83690; 85007; 85025; 87088; 96374; 99285; P9047

== ENCOUNTER 2023-04-06 07:40 | Emergency (ER) | payer BC ==
[~2023-04-06] VITALS: Ht 160 cm; Wt 71.3 kg
[~2023-04-06 07:40] MED LIST changes: +BACL10TA2 PO; +DIPH-735 PO; +LACT10SO3 PO; -LACT10SO7 PO
[2023-04-06 09:12] LABS: BASOPHILS # (AUTO) 0.1 X10'3 (0-0.2); BASOPHILS % (AUTO) 1.1 % (0-1); EOSINOPHILS # (AUTO) 0.2 X10'3 (0-0.9); EOSINOPHILS % (AUTO) 3.5 % (0-6); HEMATOCRIT 23.7 % (35.0-45.0); HEMOGLOBIN 7.6 g/dl (12.0-16.0); LYMPHOCYTES # (AUTO) 0.5 X10'3 (1.1-4.8); LYMPHOCYTES % (AUTO) 11.2 % (21-51); MEAN CORPUSCULAR HEMOGLOBIN 26.9 PG (27.0-31.0); MEAN CORPUSCULAR HGB CONC 32.2 g/dL (33.0-36.5); MEAN CORPUSCULAR VOLUME 83.5 FL (78-98); MEAN PLATELET VOLUME 7.9 FL (7.4-10.4); MONOCYTES # (AUTO) 0.7 X10'3 (0-0.9); MONOCYTES % (AUTO) 14.9 % (2-12); NEUTROPHILS # (AUTO) 3.4 X10'3 (1.8-7.7); NEUTROPHILS % (AUTO) 69.3 % (42-75); PLATELET COUNT 208 X10'3 (140-440); RED BLOOD COUNT 2.84 X10'6 (4.20-5.60); RED CELL DISTRIBUTION WIDTH 16.6 % (11.5-14.5); WHITE BLOOD COUNT 4.9 X10'3 (4.5-11.0)
[2023-04-06 09:16] LABS: ALANINE AMINOTRANSFERASE 27 U/L (12-78); ALBUMIN 3.3 G/DL (3.4-5.0); ALBUMIN/GLOBULIN RATIO 0.8 (1.1-1.5); ALKALINE PHOSPHATASE 195 IU/L (46-116); AMYLASE 104 U/L (25-115); ANION GAP 8 (8-16); ASPARTATE AMINO TRANSFERASE 35 U/L (10-37); BILIRUBIN,TOTAL 1.3 MG/DL (0.1-1.0); BLOOD UREA NITROGEN 22 MG/DL (7-18); BUN/CREATININE RATIO 22.4 (10.0-20.0); CALCIUM 8.7 MG/DL (8.5-10.1); CHLORIDE 99 MMOL/L (99-107); CREATININE 0.98 MG/DL (0.40-0.90); GLUCOSE 103 MG/DL (70-104); POTASSIUM 4.6 MMOL/L (3.5-5.1); SODIUM 128 MMOL/L (135-145); TOTAL CARBON DIOXIDE 20.6 MMOL/L (24-32); TOTAL PROTEIN 7.4 G/DL (6.4-8.2); eCRCL 52 ML/MIN; eGFR 58 ML/MIN
[2023-04-06 10:16] LABS: URINE HCG NEGATIVE (NEG)
[2023-04-06 10:21] LABS: BILIRUBIN,URINE NEGATIVE (Neg); CLARITY,URINE CLEAR (Clear); COLOR,URINE YELLOW (Yellow); GLUCOSE, URINE NEGATIVE (Neg); KETONES,URINE NEGATIVE (Neg); LEUKOCYTE ESTERASE ,URINE TRACE (Neg); NITRITES, URINE NEGATIVE (Neg); OCCULT BLOOD,URINE NEGATIVE (Neg); PH,URINE 6.5 (4.8-8.0); PROTEIN,URINE NEGATIVE (Neg); UROBILINOGEN,URINE 0.2 E.U/dL (0.2-1.0)
[2023-04-06 10:27] LABS: UA COLLECTION TYPE CLN CATCH MIDSTREAM
[2023-04-06 10:29] LABS: BACTERIA,URINE 1+ /HPF (Neg); RBC,URINE 0-2 /HPF (0-2); SQUAMOUS EPITHELIAL CELL,UR MODERATE /LPF (FEW)
[2023-04-06 11:00] VITALS: TEMP 98.6
[2023-04-06] MEDS ORDERED: ringers solution, lacted 1,000 ML IV ONE (11:25)
--- NOTE | 2023-04-06 11:30 | NUR ---
Dr. Cordoba delayed d/c, MAPs over 70's 100's/ 107/64 HR 70's at 1000. 90/60's. Pt. related she fell over a month ago going over a step. Dr. Cordoba ordered IVF related to BPs, stated aware of her hx. Delayed d/c due to Dr. Cordoba, adding new orders, see orders.
--- NOTE | 2023-04-06 11:55 | NUR ---
Hourly to q 30 min to 15 minutes checks all shift.
--- NOTE | 2023-04-06 11:56 | NUR ---
Yobany CASTELLANOS here with [facility] to get IV
--- NOTE | 2023-04-06 13:43 | NUR ---
PT AMBULATE TO BR WITH STEADY GAIT.
[2023-04-06 14:40] VITALS: BP 99/66; PULSE 69; RESP 16; O2SAT 100
== END 2023-04-06 15:46 | disposition home or self-care (01) ==
LOC: ER 07:40
DX: R18.8 Other ascites (principal)
CPT/HCPCS: 36415; 74176; 80053; 81001; 81025; 82150; 83690; 85025; 87088; 96360; 99285; J7120

== ENCOUNTER 2023-04-24 09:04 | Day surgery (SDC) | payer BC ==
[~2023-04-24] VITALS: Ht 162.6 cm; Wt 71.4 kg
[2023-04-24] MEDS ORDERED: albumin 25% 100mL bottle x 1 IV PRN (09:20)
[2023-04-24 09:30] VITALS: BP 121/64; PULSE 66; RESP 16; TEMP 97.9; O2SAT 100
[2023-04-24] MEDS ORDERED: HYDR50TA65 PO (09:34)
--- NOTE | 2023-04-24 10:28 | NUR ---
Procedure cancelled. No fluid noted by RUBÉN Rivera during ultrasound. Patient belongings returned, ambulated to DC.
== END 2023-04-24 10:25 | disposition home or self-care (01) ==
LOC: SSTAY O 09:04
PROVIDERS: ATTEND Radiology Vascular & Interventional Radiology
DX: K70.31 Alcoholic cirrhosis of liver with ascites (principal); Z83.3 Family history of diabetes mellitus; Z82.49 Family history of ischemic heart disease and other diseases of the circulatory system; Z79.899 Other long term (current) drug therapy; Z98.890 Other specified postprocedural states; Z87.11 Personal history of peptic ulcer disease
CPT/HCPCS: 76604; 76705; A6258; A6449; C1729

== ENCOUNTER 2023-05-18 14:25 | Inpatient (IN) | payer BC ==
[~2023-05-18] VITALS: Ht 162.6 cm; Wt 65.6 kg
[~2023-05-18 14:25] MED LIST changes: -BACL10TA2 PO; -CLON2TAB44 PO; -DIPH-735 PO; +HYDR50TA65 PO; -RIFA550T PO
[2023-05-18 14:54] LABS: BASOPHILS % (AUTO) 0.4 % (0-1); EOSINOPHILS # (AUTO) 0.3 X10'3 (0-0.9); EOSINOPHILS % (AUTO) 3.8 % (0-6); HEMATOCRIT 27.5 % (35.0-45.0); HEMOGLOBIN 8.8 g/dl (12.0-16.0); MEAN CORPUSCULAR HEMOGLOBIN 25.1 PG (27.0-31.0); MEAN CORPUSCULAR HGB CONC 32.1 g/dL (33.0-36.5); MEAN CORPUSCULAR VOLUME 78.2 FL (78-98); MEAN PLATELET VOLUME 7.8 FL (7.4-10.4); MONOCYTES # (AUTO) 1.9 X10'3 (0-0.9); MONOCYTES % (AUTO) 25.2 % (2-12); NEUTROPHILS # (AUTO) 4.3 X10'3 (1.8-7.7); NEUTROPHILS % (AUTO) 57.6 % (42-75); PLATELET COUNT 230 X10'3 (140-440); RED BLOOD COUNT 3.52 X10'6 (4.20-5.60); RED CELL DISTRIBUTION WIDTH 17.4 % (11.5-14.5); WHITE BLOOD COUNT 7.4 X10'3 (4.5-11.0)
[2023-05-18 15:11] LABS: ALANINE AMINOTRANSFERASE 28 U/L (12-78); ALBUMIN 3.3 G/DL (3.4-5.0); ALBUMIN/GLOBULIN RATIO 0.8 (1.1-1.5); ALKALINE PHOSPHATASE 164 IU/L (46-116); ANION GAP 12 (8-16); ASPARTATE AMINO TRANSFERASE 28 U/L (10-37); BILIRUBIN,TOTAL 1.3 MG/DL (0.1-1.0); BLOOD UREA NITROGEN 22 MG/DL (7-18); BUN/CREATININE RATIO 16.8 (10.0-20.0); CALCIUM 8.5 MG/DL (8.5-10.1); CHLORIDE 100 MMOL/L (99-107); CREATININE 1.31 MG/DL (0.40-0.90); GLUCOSE 63 MG/DL (70-104); POTASSIUM 3.7 MMOL/L (3.5-5.1); SODIUM 132 MMOL/L (135-145); TOTAL CARBON DIOXIDE 19.7 MMOL/L (24-32); TOTAL PROTEIN 7.2 G/DL (6.4-8.2); eCRCL 40 ML/MIN; eGFR 42 ML/MIN
[2023-05-18 15:15] LABS: ANISOCYTOSIS 1+; ELLIPTOCYTES FEW; MICROCYTOSIS 1+; PLATELET ESTIMATE NORMAL; TOTAL CELLS COUNTED 100
[2023-05-18 15:16] LABS: ACANTHOCYTES FEW; HYPOCHROMASIA 1+
[2023-05-18 15:18] LABS: PRO BRAIN NATRIURETIC PEPTIDE 342 PG/ML (0-125)
[2023-05-18] MEDS ORDERED: normal saline 500ml IV soln 1,000 ML IV SCH (15:35)
--- NOTE | 2023-05-18 16:32 | NUR ---
Teleneuro consult initiated, awaiting for the call
[2023-05-18] MEDS ORDERED: aspirin 325mg tablet PO ONE (19:20)
[2023-05-18] MEDS ORDERED: diphenhydrAMINE 50 mg/ml inj IV PRN (20:35)
[2023-05-18] MEDS ORDERED: ondansetron 4mg rapidly disintigrating tab PO PRN (20:35)
[2023-05-18] MEDS ORDERED: acetaminophen 650mg rectal suppository RC PRN (20:35)
[2023-05-18] MEDS ORDERED: magnesium hydroxide 30ml (MOM) UD suspension PO PRN (20:35)
[2023-05-18] MEDS ORDERED: acetaminophen 325mg tablet PO PRN ×2 (20:35)
[2023-05-18] MEDS ORDERED: diphenhydrAMINE 25mg capsule PO PRN (20:35)
[2023-05-18] MEDS ORDERED: morphine 2 MG/ML inj. syringe IV PRN (20:35)
[2023-05-18] MEDS ORDERED: HYDROcodone/acetaminophen 5mg/325mg tablet PO PRN (20:35)
[2023-05-18] MEDS ORDERED: bisacodyl 10mg suppository rectal RC PRN (20:35)
[2023-05-18] MEDS ORDERED: ondansetron/PF 4mg/2ml inj IV PRN (20:35)
[2023-05-18] MEDS ORDERED: mag hydrox/Alum hydrox/simeth 30ml oral suspension PO PRN (20:35)
[2023-05-18] MEDS ORDERED: temazepam 15mg capsule PO PRN (21:00)
[2023-05-18 21:02] LABS: HEMOGLOBIN A1C 5.5 % (4.5-6.2)
[2023-05-18 21:05] LABS: PHOSPHORUS 3.3 MG/DL (2.3-4.5)
[2023-05-18] MEDS: normal saline 1000ml 1,000 ML IV SCH (21:27)
[2023-05-18] MEDS ORDERED: PANT-47 PO (21:32)
[2023-05-18] MEDS ORDERED: HYDR-3686 PO (21:37)
[2023-05-18] MEDS ORDERED: rifaximin 550mg tablet PO SCH (22:05)
[2023-05-18 22:46] LABS: APTT 61 SECONDS (22-32); INR 1.8 INR
--- NOTE | 2023-05-18 23:25 | NUR ---
MRI SCREENING FORM COMPLETED AND FAXED. FORM PLACED WITH PTS CHART.
--- NOTE | 2023-05-19 01:41 | NUR ---
I have reviewed and agree with all assessments performed and documented by Carie.
[2023-05-19] MEDS: normal saline 1000ml 1,000 ML IV SCH (06:49)
[2023-05-19 06:50] VITALS: TEMP 98
[2023-05-19] MEDS ORDERED: pantoprazole 40mg Tablet.DR PO SCH (07:30)
[2023-05-19] MEDS ORDERED: docusate sod 100mg capsule PO SCH (08:00)
[2023-05-19] MEDS ORDERED: atorvastatin 10mg tablet PO SCH (08:00)
[2023-05-19] MEDS ORDERED: aspirin 81mg tab.chew PO SCH (08:30)
[2023-05-19] MEDS ORDERED: folic acid 1mg tablet PO SCH (08:35)
[2023-05-19 08:49] LABS: BASOPHILS # (AUTO) 0.1 X10'3 (0-0.2); BASOPHILS % (AUTO) 1.3 % (0-1); EOSINOPHILS # (AUTO) 0.2 X10'3 (0-0.9); EOSINOPHILS % (AUTO) 4.2 % (0-6); HEMATOCRIT 26.3 % (35.0-45.0); HEMOGLOBIN 8.4 g/dl (12.0-16.0); LYMPHOCYTES # (AUTO) 0.8 X10'3 (1.1-4.8); LYMPHOCYTES % (AUTO) 18.6 % (21-51); MEAN CORPUSCULAR HEMOGLOBIN 25.3 PG (27.0-31.0); MEAN CORPUSCULAR HGB CONC 31.9 g/dL (33.0-36.5); MEAN CORPUSCULAR VOLUME 79.4 FL (78-98); MEAN PLATELET VOLUME 7.9 FL (7.4-10.4); MONOCYTES # (AUTO) 0.9 X10'3 (0-0.9); MONOCYTES % (AUTO) 20.1 % (2-12); NEUTROPHILS # (AUTO) 2.4 X10'3 (1.8-7.7); NEUTROPHILS % (AUTO) 55.8 % (42-75); PLATELET COUNT 165 X10'3 (140-440); RED BLOOD COUNT 3.31 X10'6 (4.20-5.60); RED CELL DISTRIBUTION WIDTH 17.6 % (11.5-14.5); WHITE BLOOD COUNT 4.3 X10'3 (4.5-11.0)
[2023-05-19 09:27] LABS: ALANINE AMINOTRANSFERASE 23 U/L (12-78); ALBUMIN 2.8 G/DL (3.4-5.0); ALBUMIN/GLOBULIN RATIO 0.8 (1.1-1.5); ALKALINE PHOSPHATASE 121 IU/L (46-116); ANION GAP 9 (8-16); ASPARTATE AMINO TRANSFERASE 25 U/L (10-37); BILIRUBIN,TOTAL 1.6 MG/DL (0.1-1.0); BLOOD UREA NITROGEN 17 MG/DL (7-18); BUN/CREATININE RATIO 15.5 (10.0-20.0); CALCIUM 8.6 MG/DL (8.5-10.1); CHLORIDE 105 MMOL/L (99-107); CHOL/HDL RATIO 2.3 (0.00-4.99); CHOLESTEROL 149 MG/DL (0-200); GLUCOSE 89 MG/DL (70-104); HDL CHOLESTEROL 64 MG/DL (35-60); LDL CHOLESTEROL 81 MG/DL (50-100); POTASSIUM 4.2 MMOL/L (3.5-5.1); SODIUM 133 MMOL/L (135-145); TOTAL PROTEIN 6.2 G/DL (6.4-8.2); TRIGLYCERIDES 61 MG/DL (20-135); eCRCL 48 ML/MIN; eGFR 51 ML/MIN
--- NOTE | 2023-05-19 10:34 | NUR ---
Pt reports feeling anxious after MRI, requesting medication. Hospitalist contacted, they will round and see patient shortly. Pt aware.
[2023-05-19] MEDS ORDERED: LORazepam 1 MG tablet PO ONE (10:40)
[2023-05-19 12:35] VITALS: BP 100/64; PULSE 75; RESP 16; O2SAT 100
[2023-05-19] MEDS ORDERED: FOLI1TAB27 PO (12:46)
[2023-05-19] MEDS ORDERED: LACT10SO3 PO (12:46)
[2023-05-19] MEDS ORDERED: SERT-433 PO (12:46)
[2023-05-19] MEDS ORDERED: thiamine tablet PO (12:46)
[2023-05-19] MEDS ORDERED: FERR324T4 PO (12:47)
[2023-05-19] MEDS ORDERED: FURO-149 PO (12:47)
--- NOTE | 2023-05-19 12:52 | NUR ---
Per MD, pt to be discharged today. Awaiting orders, pt aware and in agreement with DC plan.
--- NOTE | 2023-05-19 13:05 | NUR ---
ASSISTING RN WITH DC INSTRUCTIONS, PAGED DR HARTLEY TO FINALIZE INSTRUCTIONS, PT HAS RIDE HOME WITH FAMILY
[2023-05-19] MEDS ORDERED: lactulose 20gm/30ml cup PO SCH (14:00)
[2023-05-19] MEDS ORDERED: ATOR20TA PO (14:45)
[2023-05-19] MEDS ORDERED: ASPI-1265 PO (14:45)
[2023-05-20] MEDS ORDERED: thiamine 100mg tablet PO SCH (08:00)
== END 2023-05-19 14:02 | disposition home or self-care (01) | DRG 69 ==
LOC: ER 14:26 → ED HOLD 20:44
PROVIDERS: ADMIT Family Medicine; ATTEND Internal Medicine
DX: G45.9 Transient cerebral ischemic attack, unspecified (principal); G93.41 Metabolic encephalopathy; K76.7 Hepatorenal syndrome; E87.1 Hypo-osmolality and hyponatremia; N17.9 Acute kidney failure, unspecified; E87.20 Acidosis, unspecified; K76.6 Portal hypertension; D64.9 Anemia, unspecified; B19.20 Unspecified viral hepatitis C without hepatic coma; K70.31 Alcoholic cirrhosis of liver with ascites; F41.9 Anxiety disorder, unspecified; J45.909 Unspecified asthma, uncomplicated; N18.9 Chronic kidney disease, unspecified; I12.9 Hypertensive chronic kidney disease with stage 1 through stage 4 chronic kidney disease, or unspecified chronic kidney disease; E86.1 Hypovolemia; Z80.1 Family history of malignant neoplasm of trachea, bronchus and lung; Z83.3 Family history of diabetes mellitus; Z82.5 Family history of asthma and other chronic lower respiratory diseases; Z87.11 Personal history of peptic ulcer disease; Z86.19 Personal history of other infectious and parasitic diseases; Z79.899 Other long term (current) drug therapy
CPT/HCPCS: 36415; 70450; 70551; 71045; 80053; 80061; 82140; 82948; 83036; 83735; 83880; 84100; 84484; 85007; 85025; 85610; 85730; 99285; G0378; J2270; J2405; J7030; J7040

== ENCOUNTER 2023-05-20 08:15 | Emergency (ER) | payer BC ==
[~2023-05-20] VITALS: Ht 162.6 cm; Wt 67.3 kg
[~2023-05-20 08:15] MED LIST changes: +ASPI-1265 PO; +ATOR20TA PO; +FERR324T4 PO; +FOLI1TAB27 PO; -HYDR50TA65 PO; -MAGN200T5 PO; +SERT-433 PO; +thiamine tablet PO
[2023-05-20 08:18] VITALS: BP 89/48; PULSE 78; TEMP 98.6; O2SAT 100
--- NOTE | 2023-05-20 08:24 | NUR ---
DR SHANE IN TRIAGE. ORDERS FOR ACS PROTOCOL UA UTOX ETOH
[2023-05-20 09:00] LABS: ALANINE AMINOTRANSFERASE 31 U/L (12-78); ALBUMIN 3.4 G/DL (3.4-5.0); ALBUMIN/GLOBULIN RATIO 0.9 (1.1-1.5); ALKALINE PHOSPHATASE 172 IU/L (46-116); ANION GAP 11 (8-16); ASPARTATE AMINO TRANSFERASE 34 U/L (10-37); BILIRUBIN,TOTAL 1.1 MG/DL (0.1-1.0); BLOOD UREA NITROGEN 23 MG/DL (7-18); CALCIUM 8.7 MG/DL (8.5-10.1); CHLORIDE 103 MMOL/L (99-107); CREATININE 1.53 MG/DL (0.40-0.90); GLUCOSE 101 MG/DL (70-104); POTASSIUM 5.1 MMOL/L (3.5-5.1); SODIUM 132 MMOL/L (135-145); TOTAL CARBON DIOXIDE 18.3 MMOL/L (24-32); TOTAL PROTEIN 7.1 G/DL (6.4-8.2); eCRCL 35 ML/MIN; eGFR 35 ML/MIN
[2023-05-20 09:01] LABS: BASOPHILS # (AUTO) 0.1 X10'3 (0-0.2); BASOPHILS % (AUTO) 0.9 % (0-1); EOSINOPHILS # (AUTO) 0.2 X10'3 (0-0.9); EOSINOPHILS % (AUTO) 3.4 % (0-6); HEMOGLOBIN 8.4 g/dl (12.0-16.0); LYMPHOCYTES # (AUTO) 0.6 X10'3 (1.1-4.8); LYMPHOCYTES % (AUTO) 8.6 % (21-51); MEAN CORPUSCULAR HEMOGLOBIN 25.7 PG (27.0-31.0); MEAN CORPUSCULAR HGB CONC 32.5 g/dL (33.0-36.5); MEAN PLATELET VOLUME 7.5 FL (7.4-10.4); MONOCYTES # (AUTO) 1.3 X10'3 (0-0.9); MONOCYTES % (AUTO) 18.8 % (2-12); NEUTROPHILS # (AUTO) 4.9 X10'3 (1.8-7.7); NEUTROPHILS % (AUTO) 68.3 % (42-75); PLATELET COUNT 225 X10'3 (140-440); RED BLOOD COUNT 3.29 X10'6 (4.20-5.60); WHITE BLOOD COUNT 7.1 X10'3 (4.5-11.0)
[2023-05-20 09:08] LABS: ETHANOL < 10 MG/DL (<10); PRO BRAIN NATRIURETIC PEPTIDE 539 PG/ML (0-125)
[2023-05-20 09:27] LABS: BILIRUBIN,URINE NEGATIVE (Neg); CLARITY,URINE CLEAR (Clear); COLOR,URINE YELLOW (Yellow); GLUCOSE, URINE NEGATIVE (Neg); KETONES,URINE TRACE mg/dl (Neg); LEUKOCYTE ESTERASE ,URINE TRACE (Neg); NITRITES, URINE NEGATIVE (Neg); OCCULT BLOOD,URINE NEGATIVE (Neg); PROTEIN,URINE NEGATIVE (Neg)
[2023-05-20 09:44] LABS: URINE AMPHETAMINE SCREEN NEGATIVE (Neg); URINE BARBITUATE SCREEN NEGATIVE (Neg); URINE BENZODIAZEPINES SCREEN NEGATIVE (Neg); URINE CANNABINOID SCREEN NEGATIVE (Neg); URINE COCAINE SCREEN NEGATIVE (Neg); URINE METHADONE SCREEN NEGATIVE (Neg); URINE OPIATE SCREEN NEGATIVE (Neg); URINE PHENCYCLIDINE SCREEN NEGATIVE (Neg)
[2023-05-20 09:51] LABS: UA COLLECTION TYPE CLN CATCH MIDSTREAM
[2023-05-20 09:52] LABS: BACTERIA,URINE FEW /HPF (Neg); MUCUS STRANDS FEW /LPF (Neg); RBC,URINE NONE SEEN /HPF (0-2); RENAL CELLS, URINE FEW /HPF; SQUAMOUS EPITHELIAL CELL,UR MODERATE /LPF (FEW); TRANSITIONAL EPI CELLS,URINE FEW /HPF; WBC,URINE 0-4 /HPF (0-4)
[2023-05-20 10:05] LABS: PLATELET ESTIMATE NORMAL; POIKILOCYTOSIS 1+
[2023-05-20 10:06] LABS: ANISOCYTOSIS 1+; MICROCYTOSIS 1+
[2023-05-20 13:03] VITALS: RESP 18
== END 2023-05-20 13:13 | disposition home or self-care (01) ==
LOC: ER 08:16
DX: R53.1 Weakness (principal); R44.1 Visual hallucinations; R14.0 Abdominal distension (gaseous); J45.909 Unspecified asthma, uncomplicated; Z79.899 Other long term (current) drug therapy; Z79.1 Long term (current) use of non-steroidal anti-inflammatories (NSAID); Z79.2 Long term (current) use of antibiotics
CPT/HCPCS: 36415; 71045; 80053; 80305; 80320; 81001; 82140; 83880; 84484; 85008; 85025; 87088; 93005; 99285

== ENCOUNTER 2023-06-06 13:48 | Emergency (ER) | payer BC ==
[~2023-06-06] VITALS: Ht 162.6 cm; Wt 70.5 kg
[2023-06-06 15:31] VITALS: BP 93/54; PULSE 73; RESP 12; TEMP 98.4; O2SAT 100
[2023-06-06 15:39] LABS: BILIRUBIN,URINE NEGATIVE (Neg); CLARITY,URINE SLIGHTLY CLOUDY (Clear); COLOR,URINE YELLOW (Yellow); GLUCOSE, URINE NEGATIVE (Neg); KETONES,URINE NEGATIVE (Neg); LEUKOCYTE ESTERASE ,URINE NEGATIVE (Neg); NITRITES, URINE NEGATIVE (Neg); OCCULT BLOOD,URINE NEGATIVE (Neg); PROTEIN,URINE NEGATIVE (Neg); UROBILINOGEN,URINE 0.2 E.U/dL (0.2-1.0)
[2023-06-06 15:43] LABS: UA COLLECTION TYPE VOIDED
[2023-06-06 15:50] LABS: BASOPHILS % (AUTO) 0.8 % (0-1); EOSINOPHILS # (AUTO) 0.2 X10'3 (0-0.9); EOSINOPHILS % (AUTO) 5.1 % (0-6); HEMATOCRIT 23.7 % (35.0-45.0); HEMOGLOBIN 7.6 g/dl (12.0-16.0); LYMPHOCYTES # (AUTO) 0.7 X10'3 (1.1-4.8); LYMPHOCYTES % (AUTO) 13.6 % (21-51); MEAN CORPUSCULAR HEMOGLOBIN 25.6 PG (27.0-31.0); MEAN CORPUSCULAR HGB CONC 32.2 g/dL (33.0-36.5); MEAN CORPUSCULAR VOLUME 79.7 FL (78-98); MEAN PLATELET VOLUME 8.1 FL (7.4-10.4); MONOCYTES # (AUTO) 0.9 X10'3 (0-0.9); MONOCYTES % (AUTO) 19.3 % (2-12); NEUTROPHILS # (AUTO) 2.9 X10'3 (1.8-7.7); NEUTROPHILS % (AUTO) 61.2 % (42-75); PLATELET COUNT 198 X10'3 (140-440); RED BLOOD COUNT 2.98 X10'6 (4.20-5.60); RED CELL DISTRIBUTION WIDTH 19.7 % (11.5-14.5); WHITE BLOOD COUNT 4.8 X10'3 (4.5-11.0)
[2023-06-06 15:57] LABS: HYALINE CASTS 0-3 /LPF (NEGATIVE); SQUAMOUS EPITHELIAL CELL,UR FEW /LPF (FEW)
[2023-06-06 15:58] LABS: BACTERIA,URINE FEW /HPF (Neg); RBC,URINE 0-2 /HPF (0-2); WBC,URINE 0-4 /HPF (0-4)
[2023-06-06 16:06] LABS: LACTIC SEPSIS 1.5 MMOL/L (0.4-2.0)
[2023-06-06 16:13] LABS: ALANINE AMINOTRANSFERASE 28 U/L (12-78); ALBUMIN/GLOBULIN RATIO 0.8 (1.1-1.5); ALKALINE PHOSPHATASE 173 IU/L (46-116); ANION GAP 12 (8-16); ASPARTATE AMINO TRANSFERASE 32 U/L (10-37); BLOOD UREA NITROGEN 22 MG/DL (7-18); BUN/CREATININE RATIO 16.1 (10.0-20.0); CALCIUM 8.2 MG/DL (8.5-10.1); CHLORIDE 105 MMOL/L (99-107); CREATININE 1.37 MG/DL (0.40-0.90); GLUCOSE 97 MG/DL (70-104); POTASSIUM 3.8 MMOL/L (3.5-5.1); SODIUM 136 MMOL/L (135-145); TOTAL CARBON DIOXIDE 18.9 MMOL/L (24-32); TOTAL PROTEIN 6.7 G/DL (6.4-8.2); eCRCL 39 ML/MIN; eGFR 40 ML/MIN
[2023-06-06 16:23] LABS: ANISOCYTOSIS 1+; MICROCYTOSIS 1+; PLATELET ESTIMATE NORMAL
[2023-06-06 16:24] LABS: BURR CELLS 1+; ELLIPTOCYTES FEW; SCHISTOCYTES FEW
== END 2023-06-06 18:55 | disposition left against medical advice (07) ==
LOC: ER 13:53
DX: R53.1 Weakness (principal); Z53.21 Procedure and treatment not carried out due to patient leaving prior to being seen by health care provider
CPT/HCPCS: 36415; 70450; 71045; 80053; 81001; 82140; 83605; 84484; 85008; 85025; 99281

== ENCOUNTER 2024-01-01 07:49 | Emergency (ER) | payer BC ==
[~2024-01-01] VITALS: Ht 162.6 cm; Wt 78.6 kg
[~2024-01-01 07:49] MED LIST changes: -ASPI-1265 PO; -ATOR20TA PO
[2024-01-01 08:19] LABS: BASOPHILS % (AUTO) 0.8 % (0-1); EOSINOPHILS # (AUTO) 0.2 X10'3 (0-0.9); HEMATOCRIT 29.5 % (35.0-45.0); HEMOGLOBIN 9.8 g/dl (12.0-16.0); LYMPHOCYTES # (AUTO) 0.5 X10'3 (1.1-4.8); LYMPHOCYTES % (AUTO) 9.7 % (21-51); MEAN CORPUSCULAR HEMOGLOBIN 31.1 PG (27.0-31.0); MEAN CORPUSCULAR HGB CONC 33.1 g/dL (33.0-36.5); MEAN CORPUSCULAR VOLUME 94.2 FL (78-98); MEAN PLATELET VOLUME 8.5 FL (7.4-10.4); MONOCYTES # (AUTO) 0.6 X10'3 (0-0.9); MONOCYTES % (AUTO) 12.3 % (2-12); NEUTROPHILS # (AUTO) 3.7 X10'3 (1.8-7.7); NEUTROPHILS % (AUTO) 73.2 % (42-75); PLATELET COUNT 104 X10'3 (140-440); RED BLOOD COUNT 3.13 X10'6 (4.20-5.60); RED CELL DISTRIBUTION WIDTH 15.7 % (11.5-14.5)
[2024-01-01 08:23] LABS: URINE HCG NEGATIVE (NEG)
[2024-01-01 08:26] LABS: BILIRUBIN,URINE NEGATIVE (Neg); CLARITY,URINE CLOUDY (Clear); COLOR,URINE YELLOW (Yellow); GLUCOSE, URINE NEGATIVE (Neg); KETONES,URINE NEGATIVE (Neg); LEUKOCYTE ESTERASE ,URINE MODERATE (Neg); NITRITES, URINE POSITIVE (Neg); OCCULT BLOOD,URINE NEGATIVE (Neg); PROTEIN,URINE NEGATIVE (Neg); UROBILINOGEN,URINE 0.2 E.U/dL (0.2-1.0)
[2024-01-01] MEDS ORDERED: PROP10TA10 PO (08:30)
[2024-01-01] MEDS ORDERED: TRAZ-256 PO (08:30)
[2024-01-01 08:34] LABS: UA COLLECTION TYPE CLN CATCH MIDSTREAM
[2024-01-01 08:35] LABS: SQUAMOUS EPITHELIAL CELL,UR MANY /LPF (FEW); TRANSITIONAL EPI CELLS,URINE MANY /HPF
[2024-01-01 08:36] LABS: BACTERIA,URINE 4+ /HPF (Neg); WBC CLUMPS,URINE MANY /HPF (NEGATIVE)
[2024-01-01 08:37] LABS: RBC,URINE 0-2 /HPF (0-2)
[2024-01-01 08:38] LABS: WBC,URINE TNTC /HPF (0-4)
[2024-01-01 08:40] LABS: ALANINE AMINOTRANSFERASE 23 U/L (12-78); ALBUMIN/GLOBULIN RATIO 0.8 (1.1-1.5); ALKALINE PHOSPHATASE 189 IU/L (46-116); ANION GAP 12 (8-16); ASPARTATE AMINO TRANSFERASE 26 U/L (10-37); BILIRUBIN,TOTAL 1.2 MG/DL (0.1-1.0); BLOOD UREA NITROGEN 22 MG/DL (7-18); BUN/CREATININE RATIO 15.2 (10.0-20.0); CALCIUM 8.3 MG/DL (8.5-10.1); CHLORIDE 103 MMOL/L (99-107); CREATININE 1.45 MG/DL (0.40-0.90); GLUCOSE 99 MG/DL (70-104); LIPASE 37 U/L (16-77); POTASSIUM 3.9 MMOL/L (3.5-5.1); SODIUM 138 MMOL/L (135-145); TOTAL CARBON DIOXIDE 23.3 MMOL/L (24-32); TOTAL PROTEIN 6.7 G/DL (6.4-8.2); eCRCL 37 ML/MIN; eGFR 37 ML/MIN
[2024-01-01] MEDS: FOSFOMYCIN TROMETHAMINE 3 GM PACKET PO ONE (12:40)
[2024-01-01 13:05] VITALS: BP 97/58; PULSE 67; RESP 16; O2SAT 100
[2024-01-01] MEDS: LIDOcaine 1% W/epiNEPHrine 1:100,000 20ml vial IJ ONE (13:20)
[2024-01-01 13:25] VITALS: BP 82/48; PULSE 63; RESP 14; O2SAT 100
[2024-01-01] MEDS: albumin (human) 25% 100 ML IV solution IV ONE (13:47)
[2024-01-01 15:11] VITALS: BP 87/47; PULSE 70; RESP 12; TEMP 98.5; O2SAT 99
== END 2024-01-01 15:13 | disposition home or self-care (01) ==
LOC: ER 07:49
DX: K70.31 Alcoholic cirrhosis of liver with ascites (principal); N39.0 Urinary tract infection, site not specified; J45.909 Unspecified asthma, uncomplicated; Z79.899 Other long term (current) drug therapy
CPT/HCPCS: 36415; 49083; 80053; 81001; 81025; 83690; 85025; 96374; 99285; P9047

== ENCOUNTER 2024-01-19 03:21 | Emergency (ER) | payer BC ==
[~2024-01-19] VITALS: Ht 121.9 cm; Wt 60.0 kg
[~2024-01-19 03:21] MED LIST changes: -FERR324T4 PO; -FOLI1TAB27 PO; -MULT-1085 PO; -POTA-207 PO; +PROP10TA10 PO; -SERT-433 PO; +TRAZ-256 PO; -thiamine tablet PO
[2024-01-19 03:37] VITALS: TEMP 98.4
[2024-01-19] MEDS: albumin (human) 25% 100 ML IV solution IV ONE (06:05)
[2024-01-19] MEDS: LIDOcaine 1% W/epiNEPHrine 1:100,000 20ml vial IJ ONE (06:06)
[2024-01-19 06:52] VITALS: BP 92/55; PULSE 74; RESP 16; O2SAT 98
== END 2024-01-19 06:53 | disposition home or self-care (01) ==
LOC: ER 03:22
DX: R18.8 Other ascites (principal); J45.909 Unspecified asthma, uncomplicated; Z79.899 Other long term (current) drug therapy; Z98.890 Other specified postprocedural states; Z85.9 Personal history of malignant neoplasm, unspecified
CPT/HCPCS: 49083; 96365; 99285; J7030; P9047

== ENCOUNTER 2024-03-29 17:27 | Emergency (ER) | payer BC ==
[~2024-03-29] VITALS: Ht 160 cm; Wt 76.9 kg
[2024-03-29 18:31] LABS: BASOPHILS % (AUTO) 0.5 % (0-1); EOSINOPHILS # (AUTO) 0.2 X10'3 (0-0.9); EOSINOPHILS % (AUTO) 2.6 % (0-6); HEMATOCRIT 30.1 % (35.0-45.0); HEMOGLOBIN 9.8 g/dl (12.0-16.0); LYMPHOCYTES # (AUTO) 0.7 X10'3 (1.1-4.8); LYMPHOCYTES % (AUTO) 11.3 % (21-51); MEAN CORPUSCULAR HGB CONC 32.7 g/dL (33.0-36.5); MEAN CORPUSCULAR VOLUME 91.8 FL (78-98); MONOCYTES # (AUTO) 0.6 X10'3 (0-0.9); MONOCYTES % (AUTO) 10.5 % (2-12); NEUTROPHILS # (AUTO) 4.5 X10'3 (1.8-7.7); NEUTROPHILS % (AUTO) 75.1 % (42-75); PLATELET COUNT 148 X10'3 (140-440); RED BLOOD COUNT 3.28 X10'6 (4.20-5.60); RED CELL DISTRIBUTION WIDTH 15.4 % (11.5-14.5)
[2024-03-29 18:48] LABS: ALANINE AMINOTRANSFERASE 14 U/L (12-78); ALBUMIN/GLOBULIN RATIO 0.7 (1.1-1.5); ALKALINE PHOSPHATASE 153 IU/L (46-116); ANION GAP 11 (8-16); ASPARTATE AMINO TRANSFERASE 24 U/L (10-37); BILIRUBIN,TOTAL 1.3 MG/DL (0.1-1.0); BLOOD UREA NITROGEN 30 MG/DL (7-18); BUN/CREATININE RATIO 13.6 (10.0-20.0); CALCIUM 8.3 MG/DL (8.5-10.1); CHLORIDE 106 MMOL/L (99-107); GLUCOSE 87 MG/DL (70-104); LIPASE 35 U/L (16-77); POTASSIUM 3.5 MMOL/L (3.5-5.1); SODIUM 139 MMOL/L (135-145); TOTAL CARBON DIOXIDE 22.3 MMOL/L (24-32); TOTAL PROTEIN 7.1 G/DL (6.4-8.2); eCRCL 23 ML/MIN; eGFR 23 ML/MIN
[2024-03-29 22:32] LABS: BILIRUBIN,URINE NEGATIVE (Neg); CLARITY,URINE CLOUDY (Clear); COLOR,URINE YELLOW (Yellow); GLUCOSE, URINE NEGATIVE (Neg); KETONES,URINE NEGATIVE (Neg); LEUKOCYTE ESTERASE ,URINE MODERATE (Neg); NITRITES, URINE NEGATIVE (Neg); OCCULT BLOOD,URINE NEGATIVE (Neg); PROTEIN,URINE NEGATIVE (Neg); UROBILINOGEN,URINE 0.2 E.U/dL (0.2-1.0)
[2024-03-29 22:34] LABS: URINE HCG NEGATIVE (NEG)
[2024-03-29 23:20] LABS: UA COLLECTION TYPE CLN CATCH MIDSTREAM
[2024-03-29 23:22] LABS: BACTERIA,URINE 2+ /HPF (Neg); RBC,URINE 0-2 /HPF (0-2); SQUAMOUS EPITHELIAL CELL,UR MANY /LPF (FEW)
[2024-03-30] MEDS: morphine 4 MG/ML inj SYRINge IV STA (00:13)
[2024-03-30] MEDS: ondansetron/PF 4mg/2ml inj IV STA (00:14)
[2024-03-30] MEDS: albumin (Human) 5% 250ml 250 ML IV ONE ×2 (01:29→03:31)
[2024-03-30 02:32] LABS: BFAPPEAR HAZY; BFSOURCE ASCITES FLD
[2024-03-30 02:33] LABS: BFCOLOR STRAW; BFVOLUME 11 ML
[2024-03-30 02:35] LABS: BF RBC COUNT 23 /CU MM; BF WBC COUNT 29 /CU MM (0-1000)
[2024-03-30 02:38] LABS: LYMPHOCYTES,BODY FLUID 18 %; MONOCYTES,BODY FLUID 80 %; NEUTROPHILS,BODY FLUID 2 %
[2024-03-30 02:39] LABS: BF MESOTHELIAL CELLS FEW
[2024-03-30] MEDS: CefTRIAXone/D5W-Rocephin 1gm 50 ML IV ONE (02:42)
[2024-03-30] MEDS: normal saline 500ml IV soln 500 ML IV SCH (03:23)
[2024-03-30 04:49] VITALS: BP 90/59; PULSE 64; RESP 16; TEMP 98.2; O2SAT 100
[2024-03-30] MEDS ORDERED: CEFD300C3 PO (04:52)
== END 2024-03-30 05:37 | disposition home or self-care (01) ==
LOC: ER 17:27
DX: K70.31 Alcoholic cirrhosis of liver with ascites (principal); N39.0 Urinary tract infection, site not specified; J45.909 Unspecified asthma, uncomplicated; C7A.00 Malignant carcinoid tumor of unspecified site; Z87.11 Personal history of peptic ulcer disease; Z79.899 Other long term (current) drug therapy
CPT/HCPCS: 36415; 49083; 80053; 81001; 81025; 83690; 85025; 87070; 89051; 96365; 96366; 96367; 96368; 96375; 99285; A4314; J0696; J2270; J2405; J7030; J7040; P9045